=== PATIENT | female | born 1985 | race Caucasian/White ===

== ENCOUNTER 2017-06-09 05:32 | Inpatient (IN) ==
--- OUTSIDE RECORDS SUMMARY | 2017-06-09 05:42 | External Medical Summary | Continuity of Care Document ---
:1985 Author Organization [facility] Care Team Providers Name Role Phone [employer] Unavailable Unavailable Problems Problem Status Onset Classification Date Comments Source Date Reported Patient Active Problem 01/22/2017 Children[facility]apo currently 3 s;s [facility] (finding) and Clinics Resolved Problem 03/01/2013 Children&apo s;s [facility] and [facility] Medications Medication Details Route Status Patient Ordering Order Source Instructions Provider Date Refill(s) 0 Active [facility]a Multivitamins pos;s with [facility] Acid [facility] and Clinics Azithromycin 3 500 mg=1 tablet, Active Ravinder [facility] Day Dose Pack PO, qDay, # 3 pos;s 500 mg oral tablet, Refill(s) [facility], [facility]: [facility] and #[id number] Clinics ferrous sulfate Refill(s) 0 Active Children&a 325 mg (65 mg pos;s elemental iron) [facility] oral delayed Hospit[facility] release tablet and Clinics Ortho Micronor 0.35 mg=1 tablet, Active Amelia Children&a 0.35 mg oral PO, qDay, start pos;s tablet first tablet on Thursday07/17/2013. [facility] Take pill at the and same time every Clinics day., x 90 day(s), # 90 tablet, Refill(s) 3
</b r>start first tablet on Thursday07/17/2013. Take pill at the same time every day. lanolin topical Topical, Active Satija Children&a ointment Other-see pos;s comments, PRN [facility] Other (see Hospitals comment), and Refill(s) 0 Clinics Colace 100 mg 100 mg=1 capsule, Active Satija Children[facility]a oral capsule PO, BID, PRN pos;s Constipation, [facility] with plenty of Hospitals water, # 30 and capsule, Clinics Refill(s) 1
</b r>with plenty of water oxycodone =1 tablet, PO, Active Satija Children&a 5mg-acetaminoph q4hr, PRN PRN pos;s en 325 mg oral Pain, Severe, not [facility] tablet to exceed 12 Hospitals tablets/day not and to exceed 4000 mg Clinics acetaminophen per day, # 30 tablet, Refill(s) 0, Print Requisition
</br>no t to exceed 12 tablets/day not to exceed 4000 mg acetaminophen per day simethicone 80 80 mg=1 tablet, Active Satija Children[facility]a mg oral tablet, PO, 4 times a day pos;s chewable (after meals and [facility] bedtime), PRN Hospitals Gas, Refill(s) 0 and Clinics ibuprofen 800 800 mg=1 tablet, Active Satija Children&a mg oral tablet PO, q8hr, PRN pos;s Pain, Mild, [facility] Moderate and Hospitals Severe, with food and or milk, # 30 Clinics tablet, Refill(s) 1
</b r>with food or milk Tucks 1 application, Active Satija [facility] Topical, 4 times pos;s a day, PRN Other [facility] (see comment), Hospitals Refill(s) 0 and Clinics ibuprofen 07/06/13 12:02:00 Inactive Sejal Children&a MANAGER MEDIA, pos;s [id number], [facility] Routine, 800 mg=1 Hospitals tablet, PO, q8hr, and PRN Pain, Mild, Clinics Moderate and SevereADMINISTER WITH FOOD OR MILK MED ID: [id number] Results Order Name Results Value Reference Date Interpretation Comments Source Range 01/21 [facility] pos;s Letter [facility] Antepartum Exam 01/21 Provider Name: Marco Lerma MD [facility] Electronically Signed On: 01/21/17 04:10 PM pos; s Clinic Note Clinic Note [facility] Nurse Communication and [facility] Nurse Communication: 31 year old at 19w1d gestation seen at the [facility] for /CL and f/u echo. is complicated by a previous child with a HLHS. Pt is without complaints today. Pt denies contractions, bleeding, or LOF. labor precautions, and delivery management discussed. Pt verbalized understanding. Plan: Continue routine PNC with Dr Johnson Recommend a 3rd trimester ultrasound for growth with Dr Johnson or the [facility] Repeat C/S with Dr Johnson f/u as clinically indicated by primary provider Vitals/Ht/Wt Comfort History Comfort Assessment: No pain Obstetrical History : 3 Para Fullterm: 0 Para : 0 Abortions: 1 Livin #1 Baby's Name: Baby 1 Delivery/Outcome Date: 06/08/2012 00:00 Outcome: Delivery history: section OB Exam FHR Monitoring Method: Ultrasound Contractions: No Membrane Status: Intact Social History Category Details Last Reviewed Tobacco Never used 02/28/2013 Smoking Exposure No 02/28/2013 Provider Name: Marco Lerma MD</br> Electronically Signed On: 01/21/17 04:10 PM</br> 01/21 [facility] /2017 pos;s Ultrasound Ultrasound [facility] OBSTETRICS REPORT and Clinics (Signed Final 01/21/2017 04:08 pm) Patient Info ID #: [id number] : [birth year] (31 yrs)(F ) Name: Sheridan Snow Visit Date: 01/21/2017 09:30 am Performed By Performed By: Heike Samuels Referred By: Sheridan Johnson MD [facility] Attending: Marco Lerma, Location: [facility] Service(s) Provided US Repeat 80043 US Transvaginal Uterus 23653 Indications Previous child with HLHS Evaluation Num Of Fetuses: 1 Preg. Location: Intrauterine Heart Rate: 148 bpm Cardiac Activity: Observed Presentation: Breech Placenta: Posterior P. Cord Observed Insertion: Amniotic Fluid SABRINA FV: Normal Larg Pckt: 5.8 cm Biometry BPD: 44.7 mm G. Age: 19w 4d 43 % CI: 77.3 70 - 86 OFD: 57.8 mm FL/HC: 18.3 16.1 - 18.3 HC: 164 mm G. Age: 19w 1d 42 % HC/AC: 1.05 1.09 - 1.39 AC: 156.4 mm G. Age: 20w 6d 96 % FL/BPD: 67.1 FL: 30 mm G. Age: 19w 2d 44 % FL/AC: 19.2 20 - 24 HUM: 28.7 mm G. Age: 19w 2d 55 % CER: 19.9 mm G. Age: 19w 0d 46 % NFT: 2.87 mm NB: 6.2 mm LEFT HUM: 28.4 mm G. Age: 19w 1d 51 % FL: 29.5 mm G. Age: 19w 1d 38 % ULN: 27.1 mm G. Age: 20w 0d 59 % TIB: 27 mm G. Age: 19w 5d 69 % RAD: 24.1 mm G. Age: 19w 0d 47 % FIB: 26.8 mm G. Age: 19w 3d 69 % RIGHT HUM: 29 mm G. Age: 19w 3d 58 % FL: 31.7 mm G. Age: 19w 6d 67 % ULN: 26 mm G. Age: 19w 3d 47 % TIB: 26.6 mm G. Age: 19w 4d 64 % RAD: 25.3 mm G. Age: 19w 3d 59 % FIB: 27 mm G. Age: 19w 4d 71 % Est. FW: 325 gm 0 lb 11 oz 58 % Gestational Age LMP: w 1d Date: 09/09/16 MARIO: U/S Today: 5d MARIO: Best: 1d Det. By: LMP (09/09/16) MARIO: Targeted Anatomy Central Nervous System Calvarium: Normal appearance Cerebellum: Normal appearance Intracranial: Normal appearance Choroid Plexus: Normal appearance Lat. Ventricles: 6.5 mm Cisterna Magna: 3.1 mm Spine Cervical: Normal appearance Lumbar: Normal appearance Thoracic: Normal appearance Sacral: Normal appearance Head/Neck Face: Normal appearance Neck: Visualized Lips: Normal appearance Profile: Normal appearance Thorax Thoracic Normal appearance Aortic Arch: Visualized Contour: Lungs: Normal appearance Ductal Arch: Visualized Four Chamber: Visualized Cardiac Normal Rhythm: Cardiac Motion: Visualized Cardiac Clifton: Normal appearance R Outflow Tract: Visualized Diaphragm: Visualized L Outflow Tract: Visualized Abdomen Ventral Wall: Visualized Rt Kidney: Visualized Stomach: Visualized Bladder: Visualized Liver: Visualized Bowel: Visualized Lt Kidney: Visualized Extremities Lt Humerus: Visualized Lt Femur: Visualized Rt Humerus: Visualized Rt Femur: Visualized Lt Forearm: Visualized Lt Lower Leg: Visualized Rt Forearm: Visualized Rt Lower Leg: Visualized Lt Hand: Visualized Lt Foot: Visualized Rt Hand: Visualized Rt Foot: Visualized Other Umbilical Cord: 3-vessel Cord Insertion: Normal appearance Genitalia: Male Doppler - Vessels Ductus Venosus Normal Comment: Ductus venosus waveform is normal (positive a-wave). Doppler - Uterine Artery Right S/D Ratio: 2.62 RI: 0.62 PI: 1.15 Left S/D Ratio: 4.11 RI: 0.76 PI: 1.69 Notching: No notching seen bilaterally. Cervix Uterus Adnexa Cervical Length: 5.56 cm Cervix: Within Normal Limits Adnexa: Observed Impression Intrauterine gestation at 19 weeks 1 day. Breech presentation. No abnormalities seen. Interval growth is appropriate. Amniotic fluid volume is normal. Normal Doppler studies. Normal transvaginal cervical length suggesting low risk for idiopathic . Recommendations Follow up as clinically indicated. Marco Lerma MD Electronically Signed Final Report 01/21/2017 04:08 pm Impression Intrauterine gestation at 19 weeks 1 day. Breech presentation. No abnormalities seen. Interval growth is appropriate. Amniotic fluid volume is normal. Normal Doppler studies. Normal transvaginal cervical length suggesting low risk for idiopathic . Best. Gest. Age 19w 1d Amniotic F.V. Normal Est. Wt. (in gm) 325 Antepartum Exam 12/29 Provider Name: Ethan Castellon MD Children&a [facility] /2016 Electronically Signed On: 12/29/16 01:45 PM pos; s Clinic Note Clinic Note [facility] Nurse Communication and Clinics Nurse Communication: 31 year old at 16w0d gestation seen at the [facility] for f/u US. is complicated by an increased NT and previous child with a HLHS. Pt is without complaints today. Pt denies contractions, ble eding, or LOF. labor precautions and managment discussed. Pt verbalized understanding. Plan: f/u echo, level II and cervical length in 4 weeks with the Counts include 234 beds at the [facility] Continue routine PNC with Dr Johnson [facility] Next Appointment Recommendation: 4 weeks Vitals/Ht/Wt Pre- Weight: 63.6 kg Comfort History Comfort Assessment: No pain Obstetrical History : 3 Para Fullterm: 0 Para : 0 Abortions: 1 Livin #1 Baby's Name: Baby 1 Delivery/Outcome Date: 06/08/2012 00:00 Outcome: Delivery history: section OB Exam Heart Tones: 148 bpm FHR Monitoring Method: Ultrasound Contractions: No Membrane Status: Intact Social History Category Details Last Reviewed Tobacco Never used 02/28/2013 Smoking Exposure No 02/28/2013 Provider Name: Ethan Castellon MD</br> Electronically Signed On: 01:45 PM</br> 12/29 [facility] pos;s Letter [facility] 12/29 [facility] pos;s Ultrasound [facility] 12/01 [facility] pos;s Ultrasound [facility] 12/01 [facility] pos;s Letter [facility] Antepartum Exam 12/01 Provider Name: Marco Lerma MD [facility] Electronically Signed On: 12/01/16 04:40 PM pos; s Clinic Note Clinic Note [facility] Nurse Communication and [facility] Nurse Communication: 31 year old at 11w6d gestation seen at the [facility] for 1st trimester screen. is complicated by a prior history of a baby with HLHS. Pt is without complaints today. Pt denies contractions, bleeding, or LOF. management discussed. Pt verbalized understanding. Pt has a negative NIPS. Plan: Continue routine PNC with Dr Johnson early echo and f/u US in 4 weeks with the [facility] Detailed anatomy scan and cervical length at 20 wks with the [facility] Next Appointment Recommendation: 4 weeks Vitals/Ht/Wt Comfort History Comfort Assessment: No pain Obstetrical History : 3 Para Fullterm: 0 Para : 0 Abortions: 1 Livin #1 Baby's Name: Baby 1 Delivery/Outcome Date: 06/08/2012 00:00 Outcome: Delivery history: section OB Exam Heart Tones: 164 bpm FHR Monitoring Method: Ultrasound Contractions: No Membrane Status: Intact Social History Category Details Last Reviewed Tobacco Never used 02/28/2013 Smoking Exposure No 02/28/2013 Provider Name: Marco Lerma MD</br> Electronically Signed On: 12/01/16 04:40 PM</br> CBC WBC 6.72 4.50 - 08/23 NA Children&a x10(3) mcL 11.00 /2013 pos;s [facility] and Clinics Vital Signs Vital Sign Value Date Comments Source Temperature Celsius 36.7 Prerna 08/23/2013 Children's [facility] Clinics Diastolic Blood 73 mm[Hg] 08/23/2013 Children's Pressure Cuff [facility] Monitored and Clinics Temperature Route Oral 08/23/2013 Children's
</b [facility] Hospitals r>(08/23/2013 and Clinics 13:32:00) <sup> </sup> Heart Rate 63 bpm 08/23/2013 Children's [facility] Clinics Respiratory Rate 18 BR/min 08/23/2013 Children's [facility] Clinics Systolic Blood 132 mm[Hg] 08/23/2013 Children's Pressure Cuff [facility] Monitored and Clinics SpO2 97 % 08/23/2013 [facility]'s [facility] and [facility] Mean Arterial 95 mm[Hg] 07/10/2013 Children's Pressure Cuff [facility] Monitored and Clinics Systolic Blood 133 mm[Hg] 07/10/2013 Children's Pressure Cuff [facility] Monitored and Clinics Diastolic Blood 75 mm[Hg] 07/10/2013 Children's Pressure Cuff [facility] Monitored and Clinics NBP Activity Calm 07/09/2013 Children's
</b [facility] r>(07/09/2013 and Clinics 17:00:00) <sup> </sup> SpO2 99 % 07/09/2013 Children's [facility] Clinics Heart Rate 70 bpm 07/09/2013 Children's [facility] Respiratory Rate 17 BR/min 07/09/2013 Children's [facility] Clin[facility] NBP Cuff Sizes Adult 07/09/2013 Children's
</b [facility] r>(07/09/2013 and Clinics 17:00:00) <sup> </sup> NBP Position Lying 07/09/2013 Children's
</b [facility] r>(07/09/2013 and Clinics 17:00:00) <sup> </sup> NBP Extremity Arm, right 07/09/2013 Children's
</b [facility] r>(07/09/2013 and Clinics 17:00:00) <sup> </sup> Systolic Blood 133 mm[Hg] 07/09/2013 Children's Pressure Cuff [facility] Monitored and Clinics Diastolic Blood 75 mm[Hg] 07/09/2013 Children's Pressure Cuff [facility] Monitored and Clinics Temperature Celsius 37.0 Prerna 07/09/2013 Children's [facility] Clin[facility] Temperature Route Core/Temporal 07/09/2013 Children's
</b [facility] r>(07/09/2013 and Clinics 16:00:00) <sup> </sup> Total Pain 0 07/09/2013 Children's Calculation [facility] Hospitals and Clinics Temperature Celsius 37.5 Prerna 07/09/2013 Children's [facility] Clinics Temperature Route Core/Temporal 07/09/2013 Children's
</b [facility] r>(07/09/2013 and Clinics 13:15:00) <sup> </sup> NBP Cuff Sizes Adult 07/09/2013 Children's
</b [facility] r>(07/09/2013 and Clinics 13:15:00) <sup> </sup> Respiratory Rate 17 BR/min 07/09/2013 Children's [facility] SpO2 99 % 07/09/2013 Children's [facility] Diastolic Blood 73 mm[Hg] 07/09/2013 Children's Pressure Cuff [facility] Monitored and Clinics Systolic Blood 124 mm[Hg] 07/09/2013 Children's Pressure Cuff [facility] Monitored and Clinics Mean Arterial 91 mm[Hg] 07/09/2013 Children's Pressure Cuff [facility] Monitored and Clinics NBP Extremity Arm, left 07/09/2013 Children's
</b [facility] r>(07/09/2013 and Clinics 13:15:00) <sup> </sup> NBP Position Sitting 07/09/2013 Children's
</b [facility] r>(07/09/2013 and Clinics 13:15:00) <sup> </sup> Finger Digit 2 (Pointer) 07/09/2013 Children's
</b [facility] r>(07/09/2013 and Clinics 13:15:00) <sup> </sup> Heart Rate 78 bpm 07/09/2013 Children's [facility] and [facility] Oximetry Site Finger, right 07/09/2013 Children's hand [facility]
</b and Clinics r>(07/09/2013 13:15:00) <sup> </sup> NBP Activity Calm 07/09/2013 Children's
</b [facility] r>(07/09/2013 and Clinics 13:15:00) <sup> </sup> Total Pain 0 07/09/2013 Children's Calculation [facility] Clinics Total Pain 1 07/09/2013 Children's Calculation [facility] Mean Arterial 101 mm[Hg] 07/08/2013 Children's Pressure Cuff [facility] Monitored and Clinics Heart Rate Monitored 92 bpm 07/08/2013 Children's [facility] and [facility] SpO2 100 % 07/08/2013 Children's [facility] Temperature Celsius 36.8 Prerna 07/08/2013 Children's [facility] NBP Cuff Sizes Adult 07/08/2013 Children's
</b [facility] r>(07/08/2013 and Clinics 15:10:00) <sup> </sup> Temperature Route Core/Temporal 07/08/2013 Children's
</b [facility] r>(07/08/2013 and Clinics 15:10:00) <sup> </sup> Heart Rate Monitored 90 bpm 07/08/2013 Children's [facility] and [facility] Respiratory Rate 20 BR/min 07/08/2013 Children's Monitored [facility] Finger Digit 2 (Pointer) 07/08/2013 Children's
</b [facility] r>(07/08/2013 and Clinics 08:35:00) <sup> </sup> Oximetry Site Finger, left 07/08/2013 Children's hand [facility]
</b and Clinics r>(07/08/2013 08:35:00) <sup> </sup> NBP Extremity Arm, left 07/08/2013 Children's
</b [facility] r>(07/08/2013 and Clinics 08:35:00) <sup> </sup> NBP Position Sitting 07/08/2013 Children's
</b [facility] r>(07/08/2013 and Clinics 08:35:00) <sup> </sup> NBP Activity Active/playing 07/08/2013 Children's
</b [facility] r>(07/08/2013 and Clinics 08:35:00) <sup> </sup> Respiratory Rate 18 BR/min 07/08/2013 Children's [facility] and [facility] Heart Rate Monitored 84 bpm 07/08/2013 Children's [facility] Finger Digit 2 (Pointer) 07/08/2013 Children's
</b [facility] r>(07/07/2013 and Clinics 21:45:00) <sup> </sup> Oximetry Site Finger, right 07/08/2013 Children's hand [facility]
</b and Clinics r>(07/07/2013 21:45:00) <sup> </sup> Systolic Blood 113 mm[Hg] 07/06/2013 Children's Pressure [facility] and Clinics Mean Arterial 72 mm[Hg] 07/06/2013 Children's Pressure [facility] Clinics Diastolic Blood 52 mm[Hg] 07/06/2013 Children's Pressure [facility] Hospitals and Clinics Heart Rate 80 bpm 07/06/2013 Children's [facility] Hospitals and Clinics Diastolic Blood 75 mm[Hg] 06/29/2013 Children's Pressure Cuff [facility] Monitored and Clinics Heart Rate 101 bpm 06/29/2013 Children's [facility] and Clinics Systolic Blood 123 mm[Hg] 06/29/2013 Children's Pressure Cuff [facility] Monitored [facility] Clinics Heart Rate 94 bpm 06/17/2013 Children's [facility] Clinics Respiratory Rate 16 BR/min 06/17/2013 Children's [facility] Clinics Diastolic Blood 75 mm[Hg] 06/17/2013 Children's Pressure Cuff [facility] Monitored and Clinics Systolic Blood 127 mm[Hg] 06/17/2013 Children's Pressure Cuff [facility] Monitored and Clinics Heart Rate 88 bpm 04/01/2013 Children's [facility] Clinics Diastolic Blood 66 mm[Hg] 04/01/2013 Children's Pressure Cuff [facility] Monitored and Clinics Systolic Blood 130 mm[Hg] 04/01/2013 Children's Pressure Cuff [facility] Monitored and Clinics Encounters Location Location Encounter Encounter Reason Attending ADM DC Status Source Details Type Number For Visit Provider Date Date [facility] CLI [id number] Genetics/ Ethan 02/28 02/28 Active Children&a SW Ravinder pos;s [facility] CLI [id number] US, HLHS, Debo 04/01 04/01 Active Children&a , Fuchs pos;s NIPT [facility] and [facility] CLI [id number] CV Marco 05/13 05/13 Active Children&a Surgery Lerma pos;s Consult: [facility] ien and Clinics [facility] CLI [id number] Unknown 05/13 Active Children&a pos;s [facility] and [facility] CLI [id number] f/u US, Debo 06/17 06/17 Active Children&a BPP Fuchs pos;s [facility] and [facility] CLI [id number] BPP; f/u Marco 06/29 06/29 Active Children&a US; Lerma pos;s ; [facility] [place] [id number] delivery Sharonda 07/05 07/09 Active Children&a Satija pos;s [facility] and [facility] CLI [id number] BP and Marco 07/13 07/13 Active Children&a incision Lerma pos;s check [facility] and [facility] CLI [id number] 6 week PP Ethan 08/23 08/23 Active Children&a Ravinder pos;s [facility] and [facility] CLI [id number] Marco 12/01 12/01 Active Children&a Lerma pos;s [facility] [id number] Ethan 12/29 12/29 Active Children&a Ravinder /2016 pos;s [facility] Family History Value Date Source Advance Directives Order Name Results Value Date Source
--- OUTSIDE RECORDS SUMMARY | 2017-06-09 05:43 | External Medical Summary | Continuity of Care Document ---
:1985 Author Organization [facility] Address [address] [place], [place] [id number] Phone Care Team Providers Name Role Phone Haleigh Charles APRN Unavailable Unavailable Allergies, Adverse Reactions, Alerts Substance Reaction Severity Status No Known Drug Allergies Unknown Active Medications Medication Instructions Dosage Effective Dates Status Comments (start - stop) amoxicillin 500 mg take 1 tablet by 500 MG - Active tablet oral route every 8 hours Rhophylac 1,500 - Active unit (300 mcg)/2 mL injection syringe Tylenol 8 Hour 650 take 2 tablet by - Active mg tablet,extended oral route every 8 release hours as needed Plus 27 take 1 tablet by Not Available - Active mg-1 mg tablet oral route every day Zyrtec 10 mg as needed - Active capsule Problems Condition Effective Dates (start - stop) Clinical Status 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) w/o abn findings Supervision of other high risk - pregnancies, third trimester 31 weeks gestation of - Previous Low Transverse - Encounter for suprvsn of normal - , second trimester 26 weeks gestation of - Encounter for suprvsn of normal - , third trimester 28 weeks gestation of - Supervision of other high risk - pregnancies, third trimester Oth related conditions, - third trimester 34 weeks gestation of - Acute upper respiratory infection, unspecified Acute bronchitis, unspecified Unspecified lump in breast Irregular Menses Encounter for test, result positive Supervision of other high risk - pregnancies, first trimester 13 weeks gestation of - Supervision of other high risk - pregnancies, first trimester Encntr screen for infections w sexl - mode of transmiss Encounter for screening for oth - infec/parastc diseases Encounter for suprvsn of normal - , first trimester Encounter for screening of - mother 10 weeks gestation of - Supervision of other high risk - pregnancies, second trimester 22 weeks gestation of - Supervision of other high risk - pregnancies, second trimester 18 weeks gestation of - Previous Low Transverse - Matern care for oth or susp poor fetl - grth, third tri, unsp 31 weeks gestation of - Fam hx of congen malform, deformations - and chromsoml abnlt Matern care for oth or susp poor fetl - grth, third tri, unsp 31 weeks gestation of - OCP Surveillance - Active Procedures Procedure Date OB Visit No Charge Results Test Name Date and Time Measure Units Reference Range Abnormal Flag Comments Unknown Advance Directives Directive Yes / No Effective Date File Name Unknown Encounters Encounter Practice Location Reason(s) Diagnoses Date Provider Care Team Description For Visit Members [facility] Supervision of Alex Referring In Womens other high risk 1-201 [place]. Provider: Health PA, pregnancies, 7 700 [place] [address] [facility] Medical K, [address], [facility] [place], related Dr, [facility] Dr RIBERA, conditions, third 120, [place] 120, [id number], [id number] weeks Honorio Olmedo, gestation of MOUNIKA, MOUNIKA, tel: [phone] , [place]. tel: tel: [phone] Lisa Olmedo Supervision of Nov-1 Johnson Referring In Womens other high risk 3-201 [place]. Provider: Sana MOTA, pregnancies, 7 700 [place] [address] third [id number] Medical K, 700 1522, weeks gestation [facility], of , [facility] [address] RIBERA, 120, Me[place] 120, [id number], Honorio Olmedo, MOUNIKA RIBERA, tel: [phone]. , [place]. tel: tel: [phone] Lisa Olmedo Previous Low Nov-1 Johnson Referring In Womens Ultrasound Transverse 3-201 [place]. Provider: Sana MOTA, C-SectionMatern 7 700 [place] [address] Box care for oth or Medical K, 700 1522, susp poor fetl [facility], gr, third tri, , [facility] Dr RIBERA, [id number] weeks 120, Meño 120, , gestation of Honorio Olmedo, pregnancyFam hx MOUNIKA RIBERA, tel: of congen [phone]. [facility], , [place]. tel: deformations and tel: [phone] [facility] [phone] Lisa Olmedo Matern care for Nov-0 Johnson Referring In Womens oth or susp poor 7-201 [place]. Provider: Sana MOTA, fetl grth, third 7 700 [place] PO [address] tri, [email or web address] weeks Medical , 700 1522, gestation of [facility] [place], , [facility] Dr RIBERA, 120, Meño 120, [id number], Honorio Olmedo, [place] MOUNIKA RIBERA, tel: [phone]. , [place]. tel: tel: [phone] Lisa Olmedo Encounter for Oct-2 Johnson Referring In Womens suprvsn of normal 3-201 [place]. Provider: Sana MOTA, , third 7 700 [place] PO Box [id number] weeks Medical K, 700 1522, gestation of [facility], , [facility] Dr RIBERA, 120, Meño 120, , Honorio Olmedo, MOUNIKA RIBERA, tel: [phone]. , [place]. tel: tel: [phone] Lisa Omledo Previous Low Oct-0 Johnson Referring In Womens Transverse 6-201 [place]. Provider: Sana MOTA, C-SectionEncounte 7 700 [place] PO Box r for suprvsn of [facility], 700 1522, normal , [facility] [place], [facility] , [facility] Dr RIBERA, [id number] weeks 120, Me[place] 120, , gestation of Honorio Olmedo, MOUNIKA, MOUNIKA, tel: [phone]. , [place]. tel: tel: [phone] Lisa Olmedo Supervision of Sep-0 Johnson Referring In Womens other high risk 5-201 [place]. Provider: Health NAKUL, pregnancies, 7 700 [place] PO Box second Medical , 700 1522, [id number] weeks [facility] [place], gestation of , [facility] Dr RIBERA, 120, Meño 120, , Honorio Olmedo, MOUNIKA MOUNIKA, tel: [phone]. , [place]. tel: tel: [phone] Lisa Olmedo Supervision of Aug-0 Johnson Referring In Womens other high risk 8-201 [place]. Provider: Health NAKUL, pregnancies, 7 700 [place] PO Box second Medical , 700 1522, [id number] weeks [facility] [place], gestation of , [facility] Dr RIBERA, 120, Meño 120, , Honorio Olmedo, MOUNIKA, MOUNIKA, tel: [phone]. , [place]. tel: tel: [phone] Lisa Olmedo Supervision of Dec- Johnson Referring In Womens other high risk 0-201 [place]. Provider: Health NAKUL, pregnancies, 7 700 [place] PO Box first [id number] Medical K, 700 1522, weeks gestation [facility] [place], of , [facility] Dr RIBERA, 120, Meño 120, , Honorio Olmedo, MOUNIKA, MOUNIKA, tel: [phone]. , [place]. tel: tel: [phone] Lisa Olmedo Supervision of Johnson Referring In Womens other high risk 5-201 [place]. Provider: Health NAKUL, pregnancies, 7 700 [place] PO Box first Medical , 700 1522, trimesterEncntr [facility] [place], screen for Dr, [facility] Dr RIBERA, infections w sexl 120, Me[place] 120, , mode of Honorio [place]medo, transmissEncounte [place], [place], tel: r for screening [phone]. for oth , [place]. tel: infec/parastc tel: [phone] diseasesEncounter [phone] for suprvsn of normal , first trimesterEncounte r for screening of [id number] weeks gestation of [facility] Irregular Butler Referring In Womens MensesEncounter Renée. Provider: Health NAKUL, for 7 700 [place] PO Box test, result Medical , 700 1522, positive Center [facility], , [facility] Dr RIBERA, 120, Meño 120, , Honorio Olmedo, MOUNIKA, MOUNIKA, tel:[phone]. , [place]. tel: tel: [phone] Lisa Olmedo Acute upper October- Soham Referring In Womens respiratory - Izzy. Provider: Health NAKUL, infection, 7 700 [place] PO Box unspecifiedAcute Medical K, 700 1522, bronchitis, [place] [place]send, unspecified , [facility] Dr RIBERA, 120, Meño 120, , Honorio Olmedo, [place], tel: [phone]. , [place]. 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 Provider: Health NAKUL, (routine) w/o abn 7 700 [place] PO Box [facility] Medical , 700 1522, [place] [address], [facility] [place], 120, [place] 120, [id number], Honorio [place], [place], [place], tel:+ [phone]. , [place]. tel: tel: [phone] Lisa Olmedo Unspecified lump Nov-2 Miguelangel Referring In Womens in breast 1-201 Mar. Provider: Sana MOTA, 6 700 [place] Johnson [facility], 700 1522, [place] [address], [facility] [address] RIBERA, 120, Me[place] 120, [id number], Honorio [place], [place], tel:+ [phone]. , [place]. tel: tel: [phone] Lisa Olmedo Yogesh-2 Johnson Referring In Womens 7-201 [place]. Provider: Sana MOTA, 5 700 [place] Johnson [facility], 700 1522, [place] [address], [facility] [address] RIBERA, 120, Meño 120, [id number], Honorio [place], [place], tel:[phone]. , [place]. tel: tel: [phone] Lisa Olmedo Yogesh-0 Means In Womens 8-201 Mar. Sana MOTA, 3 700 [facility] 15[address], [address], [place], 120, [id number], [place], [place], tel:[phone] , [place]. tel: [phone] Lisa Olmedo Yogesh-0 Johnson In Womens 6-201 [place]. Sana MOTA, 3 700 [facility] 1522, [address], [place], 120, [id number], [place], [place], tel:[phone] , [place]. tel: [phone] Family History Family Member Diagnosis Age At Onset No family history of Thrombosis Mother Gestational Diabetes Maternal Grandfather Diabetes mellitus Son Cardiovascular Disease Mother Gynecological Problem Immunizations Vaccine Date Status Comments Tdap completed Source: New Immunization Record Rhophylac completed Source: New Immunization Record Influenza, injectable, completed Source: New Immunization Record quadrivalent, preservative free, 3 yrs or older Influenza, injectable, completed Source: New Immunization Record quadrivalent, preservative free, 3 yrs or older Payers Payer name Insurance type Covered republican ID Authorization(s) [facility] BL [id number] [place] CI [id number] BC [place] BL [id number] [facility] BL [id number] [facility] BL [id number] [facility] [id number] Social History Type Description Quantity Date Captured Alcohol Use Details No Caffeine Use Details Unknown Tobacco Use Status Unknown Smoking Status Never smoker Vital Signs Date / Height Weight BMI Pulse Blood Temperature Respiratory Body Head BMI Time: Rate Pressure Rate Surface Circumference percentile Area 185.70 30.9 133/79 -2017 lbs 0 mm[Hg] 3:49 kg/m PM eter (2) 30 6 3:42 kg/m PM eter (2) Chief Complaint And Reason For Visit Unknown Chief Complaint And Reason For Visit Reason For Referral Reason For Referral Unknown Plan Of Care Date Type Action Status Appointment Sheridan Blount BOOKED Appointment Sheridan Blount [facility] R C/S BOOKED Future Order: Radiology Order Diagnostic Mammogram Right Breast Ordered ([id number]) Future Order: Radiology Order Breast Ultrasound Right Breast Ordered ([id number]) Future Order: Radiology Order Ultrasound OB Follow-up ([id number]) Ordered Date Type Problem Goal Intervention Status Start Date Unknown. History Of Present Illness Encounter Date Complaint History Of Present Illness This patient has no known history of present illness Functional Status Encounter Date Functional Assessment Cognitive Assessment Unknown Medications Administered Medication Instructions Dosage Effective Dates (start - stop) Status Comments Drug Treatment Unknown Instructions Date Instruction Additional Information gestational glucose lab screening HIV and other routine tests risk factors identified by history hospital registration genetic testing Zika virus assessment & precautions environmental / work hazards travel use of any medications (including supplements, vitamins, herbs, OTC drugs) domestic violence seat belt use childbirth classes / hospital facilities anticipated course of care nutrition and weight gain counseling, special diet toxoplasmosis precautions (cats / raw meat) sexual activity exercise indications for ultrasound influenza vaccine
--- OUTSIDE RECORDS SUMMARY | 2017-06-09 05:43 | External Medical Summary | Continuity of Care Document ---
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 Encounter for suprvsn of normal - , third trimester 28 weeks gestation of - Previous Low Transverse - Encounter for suprvsn of normal - , second trimester 26 weeks gestation of - Acute upper respiratory [...] second trimester 18 weeks gestation of - Matern care for oth or susp poor fetl - grth, third tri, unsp 31 weeks gestation of - OCP Surveillance - Active Procedures Procedure Date Injection Administration Rhophylac 100 Units OB Visit No Charge Results Test Name Date and Time Measure Units Reference Range Abnormal Flag Comments Unknown Advance Directives Directive Yes / No Effective Date File Name Unknown Encounters Encounter Practice Location Reason(s) Diagnoses Date Provider Care Team Description For Visit Members Lisa Olmedo Matern care for oth Nov-0 Johnson Referring In Womens or susp poor fetl 7-201 [place]. Provider: Sana MOTA, grth, third tri, 7 700 [place] [address] [id number] weeks Medical , 700 1522, gestation of [facility], , [facility] [address] RIBERA, 120, Me[place] 120, [id number], Honorio [place], [place], [place], tel:[phone]. , [place]. tel: tel: [phone] Lisa Olmedo Encounter for Oct-2 Johnson Referring In Womens suprvsn of normal 3-201 [place]. Provider: Sana MOTA, , third 7 700 [place] PO Box [id number] weeks Medical , 700 1522, gestation of [facility], , [facility] Dr RIBERA, 120, Me[place] 120, [id number], Honorio Olmedo, [facility], [place], tel: [phone]. , . tel: tel: [phone] Olmedo Previous Low Oct-0 Johnson Referring In Womens Transverse 6-201 [place]. Provider: Health NAKUL, C-SectionEncounter 7 700 [place] PO Box for suprvsn of [facility], 700 1522, normal , [facility], second [email or web address] , [facility] Dr RIBERA, weeks gestation of 120, [place] 120, [id number], Honorio Olmedo, MOUNIKA, MOUNIKA, tel:[phone]. , [place]. tel: tel: [phone] Lisa Olmedo Supervision of Sep-0 Johnson Referring In Womens other high risk 5-201 [place]. Provider: Health PA, pregnancies, second 7 700 [place] PO Box [id number] weeks [facility], 700 1522, gestation of [facility], , [facility] Dr RIBERA, 120, Me[place] 120, , Honorio Olmedo, MOUNIKA, MOUNIKA, tel:[phone]. , [place]. tel: tel: [phone] Lisa Olmedo Supervision of Aug-0 Johnson Referring In Womens other high risk 8-201 [place]. Provider: Health NAKUL, pregnancies, second 7 700 [place] PO Box [id number] weeks Medical , 700 1522, gestation of [facility], , [facility] Dr RIBERA, 120, [place] 120, [id number], Honorio Olmedo, MOUNIKA, MOUNIKA, tel:[phone]. , [place]. tel: tel: [phone] Lisa Olmdeo Supervision of Dec- Johnson Referring In Womens other high risk 0-201 [place]. Provider: Health NAKUL, pregnancies, first 7 700 [place] PO Box [id number] weeks [facility], 700 1522, gestation of [facility], , [facility] [address] RIBERA, 120, [place] 120, [id number], Honorio Olmedo, MOUNIKA, MOUNIKA, tel:[phone]. , [place]. tel: tel: [phone] Olmedo Supervision of Johnson Referring In Womens other high risk - [place]. Provider: Health PA, pregnancies, first [place] Johnson PO Box trimesterEncntr Medical K, 700 152, screen for [place] Lilian Townsend, infections w sexl , [facility] Dr RIBERA, mode of 120, [place] 120, [id number], transmissEncounter Honorio [place], for screening for MOUNIKA RIBERA, tel: ot infec/parastc [phone]. [facility]: for suprvsn of tel: [phone] normal , [id number] first trimesterEncount for screening of ujalir21 weeks gestation of [facility] Irregular Butler Referring In Women MensesEncsaint agnes medical centerer for Renée. Provider: Health NAKUL, test, [place] PO Box result positive Medical , 700 1522, [place] [address], [facility] Dr RIBERA, 120, [place] 120, , Honorio Olmedo, MOUNIKA RIBERA, tel: [phone]. , [place]. tel: tel: [phone] Lisa Olmedo Acute upper October- Soham Referring In Womens respiratory - Izzy. Provider: Health NAKUL, infection, [place] PO Box unspecifiedAcute Medical K, 700 1522, bronchitis, [place] Lilian Townsend, unspecified , [facility] Dr RIBERA, 120, [place] 120, , Honorio Olmedo, MOUNIKA RIBERA, tel: [phone]. , [place]. 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 Provider: Health NAKUL, w/o abn findings Sher[place] PO Box Medical K, 700 1522, [place] [address], [facility] Dr RIBERA, 120, [place] 120, , Honorio [place], [place], tel: [phone]. , [place]. tel: tel: [phone] Lisa Olmedo Unspecified lump in 2 Means Referring In Womens breast 1-201 Mar. Provider: Sana MOTA, 6 700 [place] Mckeonb PO Box Medical , 700 1522, [place] [address], [facility] [place], 120, [place] 120, [id number], Honorio [place], [place], tel: [phone]. , [place]. tel: tel: [phone] Lisa Olmedo Jun-2 Johnson Referring In Womens 7-201 [place]. Provider: Sana MOTA, 5 700 [place] Mckeonb PO Box Medical , 700 1522, [place] [address], [facility] [place], 120, [place] 120, [id number], Honorio Olmedo, [facility], [place], tel: [phone]. , [place]. tel: tel: [phone] Lisa Olmedo Yogesh-0 Means In Womens 8-201 Mar. Health NAKUL, 3 700 [facility] 1522, [address], [facility] [place], 120, [id number], [facility] [place], tel:[phone] , [place]. tel: [phone] Lisa Olmedo Yogesh-0 Johnson In Womens 6-201 [place]. Health NAKUL, 3 700 [facility] 1522, [place] Dr Kristian, [facility] [place], 120, [id number], [facility] [place], tel: [phone] , [place]. tel: [phone] Family History Family Member Diagnosis Age At [...] older Payers Payer name Insurance type Covered alliance party ID Authorization(s) [employer] [place] BL [id number] Eve[place] CI [id number] [employer] [place] [id number] [place] [place] [id number] [place] [id number] [place] [id number] Social History Type Description Quantity Date Captured Alcohol Use Details No Caffeine Use Details Unknown Tobacco Use Status Unknown Smoking Status Never smoker Vital Signs Date / Height Weight BMI Pulse Blood Temperature Respiratory Body Head BMI Time: Rate Pressure Rate Surface Circumference percentile Area 181.90 30.2 123/ lbs 7 mm[Hg] 2:09 kg/m PM eter (2) Chief Complaint And Reason For Visit Unknown Chief Complaint And Reason For Visit Reason For Referral Reason For Referral Unknown Plan Of Care Date Type Action Status Appointment Sheridan Blount BOOKED Appointment Sheridan Blount BOOKED Appointment Sheridan Blount [facility] R C/S BOOKED Future Order: Radiology Order Diagnostic Mammogram Right Breast Ordered ([id number]) Future Order: Radiology Order Breast Ultrasound Right Breast Ordered ([id number]) Date Type Problem Goal Intervention Status Start [...]
--- OUTSIDE RECORDS SUMMARY | 2017-06-09 05:43 | External Medical Summary | CCD ---
:1985 Author Organization [facility] Care Team Providers Name Role Phone AlexSheridan Valente Referring Provider [phone] No, PCP Primary Care Provider Unavailable Ethan Castellon Consulting Provider [phone] Allergies, Adverse Reactions, Alerts Substance Reaction Status No Known Adverse Reactions1 Active 1pineapple and broccoli cause stomach cramps Problem List Condition Effective Dates Status 10/05/2012 Active < 06/08/2012 Resolved Medications Medication Instructions Start Date End Date Status Multivitamins with Folic Acid 0.8 Refill(s) 0 02/28/2013 Ordered mg oral tablet Procedures Procedures Date Related Diagnosis Doppler echocardiography color flow velocity 12/29/2016 00:00:00 mapping (List separately in addition to codes for echocardiography) Echocardiography, , cardiovascular system, real time with image documentation (2D), with or without M-mode recording; Office consultation for a new or established patient, which requires these 3 stahl components: A problem focused history; A problem focused examination; and Straightforward medical decision making. Counseling and/or coordination of care with other physician
--- OUTSIDE RECORDS SUMMARY | 2017-06-09 05:43 | External Medical Summary | Continuity of Care Document ---
:1985 Author Organization [facility] Address [address] [place], [place] [id number] Phone Care Team Providers Name Role Phone Haleigh Charles APRN Unavailable Unavailable Allergies, Adverse Reactions, Alerts Substance Reaction Severity Status No Known Drug Allergies Unknown Active Medications Medication Instructions Dosage Effective Dates Status Comments (start - stop) Tylenol 8 Hour 650 take 2 tablet by - Active mg tablet,extended oral route every 8 release hours as needed Plus 27 take 1 tablet by Not Available - Active mg-1 mg tablet oral route every day Problems Condition Effective Dates (start - stop) Clinical Status 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) - (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) w/o abn findings Supervision of other high risk - pregnancies, second trimester 22 weeks gestation of - Acute upper respiratory infection, unspecified Acute bronchitis, unspecified Unspecified lump in breast Irregular Menses Encounter for test, result positive Supervision of other high risk - pregnancies, first trimester 13 weeks gestation of - Supervision of other high risk - pregnancies, first trimester Encounter for suprvsn of normal - , first trimester Encounter for screening of - mother 10 weeks gestation of - Encntr screen for infections w sexl - mode of transmiss Encounter for screening for oth - infec/parastc diseases 18 weeks gestation of - Supervision of other high risk - pregnancies, second trimester OCP Surveillance - Active Procedures Procedure Date OB Visit No Charge Results Test Name Date and Time Measure Units Reference Range Abnormal Flag Comments Unknown Advance Directives Directive Yes / No Effective Date File Name Unknown Encounters Encounter Practice Location Reason(s) Diagnoses Date Provider Care Team Description For Visit Members Lisa Olmedo Supervision of Johnson Referring In Womens other high risk 5-201 [place]. Provider: Sana MOTA, pregnancies, second 7 700 [place] Johnson [address] [id number] weeks Medical , 700 1522, gestation of [facility], , [facility] Dr RIBERA, 120, Me[place] 120, [id number], Honorio Olmedo, MOUNIKA, MOUNIKA, tel: [phone]. , [place]. tel: tel: [phone] Lisa Olmedo 18 weeks gestation Johnson Referring In Womens of 8-201 Sher[place]. Provider: Sana MOTA, pregnancySupervisio 7 700 Sheridan Johnson PO Box n of [facility] Medical , 700 1522, risk pregnancies, [facility], second trimester , [facility] Dr RIBERA, 120, Me[place] 120, [id number], Honorio Olmedo, MOUNIKA RIBERA, tel: [phone]. , [place]. tel: tel: [phone] Lisa Olmedo Supervision of Johnson Referring In Womens other high risk 0-201 [place]. Provider: Sana MOTA, pregnancies, first 7 700 [place] Johnson [address] [id number] weeks Medical , 700 1522, gestation of [facility], , [facility] Dr RIBERA, 120, Meño 120, [id number], Honorio Olmedo, MOUNIKA RIBERA, tel: [phone]. , [place]. tel: tel: [phone] Lisa Olmedo Supervision of Johnson Referring In Womens other high risk 5-201 [place]. Provider: Sana MOTA, pregnancies, first 7 700 [place] [facility], for suprvsn of [place] Lilian Townsend, normal , , [facility] Dr RIBERA, first 120, Meño 120, , trimesterEncounter Honorio Olmedo, for MOUNIKA RIBERA, tel: screening of [phone]. [id number] weeks , [place]. tel: gestation of tel: [phone] pregnancyEncntr [id number] screen for infections w sexl mode of transmissEncounter for screening for oth infec/parastc diseases [facility]io Irregular October- Butler Referring In Womens MensesEncounter for Renée. Provider: Sana MOTA, test, Sher[place] Johnson PO Box result positive Medical , 700 1522, [place] Lilian Townsend, , [facility] Dr RIBERA, 120, Meño 120, , Honorio Olmedo, MOUNIKA RIBERA, tel: [phone]. , [place]. tel: tel: [phone] Associates [facility] Acute upper October- Soham Referring In Womens respiratory 8-201 Izzy. Provider: Sana MOTA, infection, Sheridan Johnson PO Box unspecifiedAcute Medical , 700 1522, bronchitis, [place] Lilian Townsend, unspecified , [facility] Dr RIBERA, 120, Meño 120, , Honorio Olmedo, M[place], tel: [phone]. , [place]. 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 Provider: Sana MOTA, w/o abn findings Sheridan Johnson PO Box Medical , 700 1522, [place] [address], [facility] Dr RIBERA, 120, Meño 120, , Honorio Olmedo, MOUNI[place] CT, tel: [phone]. , [place]. tel: tel: [phone] Lisa Olmedo Unspecified lump in Means Referring In Womens breast 1-201 Mar. Provider: Health PA, 6 700 Sheridan Mckeonb PO Box Medical K, 700 1522, [place] [address], [facility] Dr RIBERA, 120, Meño 120, [id number], Honorio [place], [place], tel: [phone]. , [place]. tel: tel: [phone] Lisa Olmedo Jun-2 Johnson Referring In Womens 7-201 Sheridan. Provider: Health PA, 5 700 [place] Johnson PO Box Medical K, 700 1522, [place] [address], [facility] [place], 120, Me[place] 120, [id number], Honorio [place], [place], tel:+ [phone]. , [place]. tel: tel: [phone] Lisa Olmedo Jun-0 Means In Womens 8-201 Mar. Health PA, 3 700 PO Box Medical [address], [place] Dr Kristian, [facility] [place], 120, [id number], [place], tel: [phone] , [place]. tel: [phone] Lisa Olmedo Jun-0 Johnson In Womens 6-201 Sheridan. Health PA, 3 700 PO Box Medical [address], [place] Dr Kristian, [facility] [place], 120, [id number], [place], tel: [phone] , [place]. tel: [phone] Family History Family Member Diagnosis Age At Onset No family history of Thrombosis Mother Gestational Diabetes Maternal Grandfather Diabetes mellitus Son Cardiovascular Disease Mother Gynecological Problem Immunizations Vaccine Date Status Comments Influenza, injectable, completed Source: New Immunization Record quadrivalent, preservative free, 3 yrs or older Payers Payer name Insurance type Covered green party ID Authorization(s) [facility] BL [id number] [facility] [id number] [facility] [id number] Social History Type Description Quantity Date Captured Alcohol Use Details No Caffeine Use Details Unknown Tobacco Use Status Unknown Smoking Status Never smoker Vital Signs Date / Height Weight BMI Pulse Blood Temperature Respiratory Body Head BMI Time: Rate Pressure Rate Surface Circumference percentile Area 170.40 35.6 -2017 lbs 5 4:05 kg/m PM eter (2) 170.40 35.6 120/64 -2017 lbs 5 mm[Hg] 4:16 kg/m PM eter (2) Chief Complaint And Reason For Visit Unknown Chief Complaint And Reason For Visit Reason For Referral Reason For Referral Unknown Plan Of Care Date Type Action Status Appointment Sheridan Blount BOOKED Future Order: Radiology Order Diagnostic Mammogram Right Breast Ordered ([id number]) Future Order: Radiology Order Breast Ultrasound Right Breast Ordered ([id number]) Date Type Problem Goal Intervention Status Start Date Unknown. History Of Present Illness Encounter Date Complaint History Of Present Illness This patient has no known history of present illness Functional Status Encounter Date Functional Assessment Cognitive Assessment Unknown Medications Administered Medication Instructions Dosage Effective Dates (start - stop) Status Comments Drug Treatment Unknown Instructions Date Instruction Additional Information HIV and other routine tests risk factors [...]
--- OUTSIDE RECORDS SUMMARY | 2017-06-09 05:43 | External Medical Summary | CCD ---
:1985 Author Organization [facility] Care Team Providers Name Role Phone Marco Lerma Consulting Provider [phone] Sheridan Johnson Referring Provider [phone] No, PCP Primary Care Provider Unavailable Allergies, Adverse Reactions, Alerts Substance Reaction Status No Known Adverse Reactions1 Active 1pineapple and broccoli cause stomach cramps Problem List Condition Effective Dates Status 10/05/2012 Active < 06/08/2012 Resolved Medications Medication Instructions Start Date End Date Status Multivitamins with Folic Acid 0.8 Refill(s) 0 02/28/2013 Ordered mg oral tablet
--- OUTSIDE RECORDS SUMMARY | 2017-06-09 05:43 | External Medical Summary | Continuity of Care Document ---
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 findings Previous Low Transverse - Matern care for oth or susp poor fetl - grth, third tri, unsp 31 weeks gestation of - Fam hx of congen malform, deformations - and chromsoml abnlt Previous Low Transverse - Encounter for suprvsn [...] second trimester 18 weeks gestation of - Supervision of other high risk - pregnancies, third trimester 31 weeks gestation of - Matern care for oth or susp poor fetl - grth, third tri, unsp 31 weeks gestation of - OCP Surveillance - Active Procedures Procedure Date Ultrasnd preg uterus, flwup/repeat Results Test Name Date and Time Measure Units Reference Range Abnormal Flag Comments Unknown Advance Directives Directive Yes / No Effective Date File Name Unknown Encounters Encounter Practice Location Reason(s) Diagnoses Date Provider Care Team Description For Visit Members Lisa Olmedo Supervision of Johnson Referring In Womens other high risk 1-201 Sheridan. Provider: Health PA, pregnancies, 7 700 Sher[place] Johnson PO Box [facility] Medical K, 700 1522, [facility] Medical Kristian, related Dr, [facility] Dr RIBERA, conditions, third 120, Meño 120, [id number], [id number] weeks Honorio Olmedo, [place] gestation of MOUNIKA RIBERA, tel:+ [phone]. [id number] , [place]. tel:[phone] tel: [phone] Lisa Olmedo Supervision of Nov-1 Johnson Referring In Womens other high risk 3-201 [place]. Provider: Sana MOTA, pregnancies, 7 700 [place] Johnson PO Box third [id number] Medical K, 700 1522, weeks gestation [facility], of , [facility] Dr RIBERA, 120, Meño 120, , Honorio Olmedo, MOUNIKA, MOUNIKA, tel: [phone]. , [place]. tel: tel: [phone] Lisa Olmedo Previous Low Nov-1 Johnson Referring In Womens Ultrasound Transverse 3-201 [place]. Provider: Sana MOTA, C-SectionMatern 7 700 [place] Johnson PO Box care for oth or Medical K, 700 1522, susp poor fetl [facility], gr, third rupali, , [facility] Dr RIBERA, [id number] weeks 120, Meño 120, , gestation of Honorio Olmedo, pregnancyFam hx MOUNIKA, MOUNIKA, tel: of congen [phone]. [facility], , [place]. tel: deformations and tel: [phone] [facility] [phone] Lisa Olmedo Matern care for Nov-0 Johnson Referring In Womens oth or susp poor 7-201 [place]. Provider: Sana MOTA, fetl grth, third 7 700 [place] Johnson PO Box tri, [id number] weeks Medical , 700 1522, gestation of [facility], , [facility] Dr RIBERA, 120, Meño 120, [id number], Honorio Olmedo, MOUNIKA, MOUNIKA, tel: [phone]. , [place]. tel: tel: [phone] Lisa Olmedo Encounter for Oct-2 Johnson Referring In Womens suprvsn of normal 3-201 [place]. Provider: Sana MOTA, , third 7 700 Sher[place] Johnson PO Box [email or web address] weeks Medical , 700 1522, gestation of [facility], , [facility] Dr RIBERA, 120, Meño 120, , Honorio Olmedo, MOUNIKA, MOUNIKA, tel:[phone]. , [place]. tel: tel: [phone] Lisa Olmedo Previous Low Oct-0 Johnson Referring In Womens Transverse 6-201 [place]. Provider: Health NAKUL, C-SectionEncounte 7 700 [place] Johnson PO Box r for suprvsn of [facility], 700 1522, normal , [facility] Kristian, [facility] , [facility] Dr RIBERA, [email or web address] weeks 120, Meño 120, , gestation of Honorio Olmedo, MOUNIKA, MOUNIKA, tel:[phone]. , [place]. tel: tel: [phone] Lisa Olmedo Supervision of Sep-0 Johnson Referring In Womens other high risk 5-201 Sher[place]. Provider: Health NAKUL, pregnancies, 7 700 Sher[place] Johnson PO Box second Medical , 700 1522, [email or web address] weeks [facility] Kristian, gestation of Dr, [facility] Dr RIBERA, 120, Meño 120, , Honorio Olmedo, MOUNIKA, MOUNIKA, tel: [phone]. , [place]. tel: tel: [phone] Lisa Olmedo Supervision of Aug-0 Johnson Referring In Womens other high risk 8-201 [place]. Provider: Health NAKUL, pregnancies, 7 700 [place] Johnsno PO Box second Medical , 700 1522, [id number] weeks [facility] Kristian, gestation of , [facility] Dr RIBERA, 120, Meño 120, , Honorio Olmedo, MOUNIKA, MOUNIKA, tel:[phone]. , [place]. tel: tel: [phone] Lisa Olmedo Supervision of Dec- Johnson Referring In Womens other high risk 0-201 [place]. Provider: Health NAKUL, pregnancies, 7 700 [place] Johnson PO Box first [id number] Medical , 700 1522, weeks gestation [facility] Kristian, of , [facility] Dr RIBERA, 120, Meño 120, , Honorio Olmedo, [facility], [place], tel: [phone]. , [place]. tel: tel: [phone] Lisa Olmedo Supervision of Johnson Referring In Womens other high risk 5-201 Sher[place]. Provider: Health PA, pregnancies, 7 700 Sher[place] Johnson PO Box first Medical , 700 1522, trimesterEncntr [facility] Kristian, screen for Dr, [facility] Dr RIBERA, infections w sexl 120, Meño 120, , mode of Honorio Olmedo, transmissEncounte CT, [place], tel: r for screening [phone]. for oth , [place]. tel: infec/parastc tel: [phone] diseasesEncounter [phone] for suprvsn of normal , first trimesterEncounte r for screening of [id number] weeks gestation of [facility] Irregular Butler Referring In Womens MensesEncounter Renée. Provider: Health NAKUL, for 7 700 Sher[place] Johnson PO Box test, result Medical , 700 1522, positive Center Lilian Townsend, , [facility] Dr RIBERA, 120, Meño 120, [id number], Honorio Olmedo, [facility], [place], tel: [phone]. , [place]. tel: tel: [phone] Lisa Olmedo Acute upper October- Soham Referring In Womens respiratory 8- Izzy. Provider: Health NAKUL, infection, 7 700 [place] Johnson PO Box unspecifiedAcute Medical K, 700 1522, bronchitis, [place] Lilian Townsend, unspecified , [facility] Dr RIBERA, 120, Meño 120, , Honorio Olmedo, [place], [place], tel: [phone]. , [place]. 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 Provider: Sana MOTA, (routine) w/o abn 7 700 Sheridan Mckeonb PO Box [facility] Medical K, 700 1522, [place] [address], [facility] [place], 120, [place] 120, [id number], Honorio [place], [place], tel:[phone]. , [place]. tel: tel: [phone] Lisa Olmedo Unspecified lump Nov-2 Means Referring In Womens in breast 1-201 Mar. Provider: Sana MOTA, 6 700 Sheridan Johnson PO [facility] , 700 1522, [place] [address], [facility] [place], 120, Me[place] 120, [id number], Honorio [place], [place], [place], tel:+ [phone]. , [place]. tel: tel: [phone] Lisa Olmedo Yogesh-2 Johnson Referring In Womens 7- Sheridan. Provider: Sana MOTA, 5 700 Sheridan Johnson [facility] Medical , 700 1522, [place] [address], [facility] Dr RIBERA, 120, Meño 120, [id number], Honorio [place], [place], tel: [phone]. , [place]. tel: tel: [phone] Lisa Olmedo Yogesh-0 Means In Womens 8-201 Mar. Sana MOTA, 3 700 [facility] [address], [address], [place], 120, [id number], [place], [place], tel: [phone] , [place]. tel: [phone] Lisa Olmedo Yogesh-0 Johnson In Womens 6-201 Sher[place]. Sana MOTA, 3 700 [facility] 15[address], [address], [place], 120, [id number], [place], [place], tel:[phone] , [place]. tel: [phone] Family History Family Member Diagnosis Age At [...] Insurance type Covered alliance party ID Authorization(s) [place] [id number] [place] [id number] [place] [id number] [place] [id number] [place] [id number] [place] [id number] Social History Type Description Quantity Date Captured Unknown Vital Signs Date / Height Weight BMI Pulse Blood Temperature Respiratory Body Head BMI Time: Rate Pressure Rate Surface Circumference percentile Area Unknown Chief Complaint And Reason For Visit Unknown Chief Complaint And Reason For Visit Reason For Referral Reason For Referral Unknown Plan Of Care Date Type Action Status Appointment Sheridan Blount BOOKED Appointment Sheridan Blount [facility] [place]ED Future Order: Radiology Order Ultrasound OB Follow-up ([id number]) Ordered Future Order: Radiology Order Diagnostic Mammogram Right Breast Ordered ([id number]) Future Order: Radiology Order Breast Ultrasound Right Breast Ordered ([id number]) Date Type Problem Goal Intervention Status Start [...]
--- OUTSIDE RECORDS SUMMARY | 2017-06-09 05:43 | External Medical Summary | CCD ---
:1985 Author Organization [facility] Care Team Providers Name Role Phone Marco Lerma Consulting Provider [phone] Sheridan Johnson Referring Provider [phone] No, PCP Primary Care Provider Unavailable Allergies, [...] Related Diagnosis Doppler echocardiography color flow velocity 01/21/2017 00:00:00 mapping (List separately in addition to codes for echocardiography)
--- OUTSIDE RECORDS SUMMARY | 2017-06-09 05:43 | External Medical Summary | Continuity of Care Document ---
:1985 Author Organization [facility] [employer] [facility] Address [address] [place], [place] [address] Phone Care Team Providers Name Role Phone [...] (start - stop) Clinical Status Encntr for cost recorder exam (general) - (routine) w/o abn findings Previous Low Transverse - Encounter for suprvsn of normal - , second trimester 26 weeks gestation of - Encounter for suprvsn of normal - , third trimester 28 weeks gestation of - Acute upper respiratory [...] other high risk - pregnancies, third trimester Previous Low Transverse - 36 weeks gestation of - Fam hx of congen malform, deformations - and chromsoml abnlt Supervision of other high risk - pregnancies, third trimester Oth related conditions, - third trimester 34 weeks gestation of - Supervision of other [...] OCP Surveillance - Active Procedures Procedure Date Unknown Results Test Name Date and Time Measure Units Reference Range Abnormal Flag Comments Unknown Advance Directives Directive Yes / No Effective Date File Name Unknown Encounters Encounter Practice Location Reason(s) Diagnoses Date Provider Care Team Description For Visit Members Lisa Olmedo Supervision of Johnson Referring In Womens other high risk 8-201 Sher[place]. Provider: Health PA, pregnancies, 7 700 Sheridan Johnson PO Box [facility] Medical K, 700 1285, trimesterPrevious Center Medical Kristian, Low Transverse Dr, Meño Center Dr RIBERA, C-Inhllnp25 weeks 120, Meño 120, [id number], gestation of Honorio [place], pregnancyFam hx [place], [place]OU[place], tel:[phone] of congen [phone]. [facility], , [place]. tel: deformations and tel: [phone] chromsoml abnlt [phone] Lisa Olmedo Dec-0 Johnson In Womens 4-201 Sher[place]. Health NAKUL, 7 700 [address] Medical [address], Porter Kristian, , Meño RIBERA, 120, [id number], [place], tel: [phone] , [place]. tel: [phone] Lisa Olmedo Supervision of Dec-0 Johnson Referring In Womens other high risk 1-201 Sheridan. Provider: Health NAKUL, pregnancies, 7 700 Sher[place] Johnson PO Box third Medical K, 700 1522, [facility]Oth [facility], related , [facility] Dr RIBERA, conditions, third 120, Meño 120, [id number], [id number] weeks Honorio Olmedo, gestation of MOUNIKA RIBERA, tel: [phone]. , [place]. tel: tel: [phone] Lisa Olmedo Supervision of Nov-1 Johnson Referring In Womens other high risk 3-201 [place]. Provider: Health NAKUL, pregnancies, 7 700 [place] Johnson PO Box third [id number] Medical K, 700 1522, weeks gestation [facility] Kristian, of Dr, [facility] Dr RIBERA, 120, Meño 120, [id number], Honorio [place], [place], [place], tel: [phone]. , [place]. tel: tel: [phone] Lisa Olmedo Previous Low Nov-1 Johnson Referring In Womens Ultrasound Transverse 3-201 [place]. Provider: Health NAKUL, C-SectionMatern 7 700 Sher[place] Johnson PO Box care for oth or Medical K, 700 1522, susp poor fetl [facility] Kristian, grth, third tri, , [facility] Dr RIBERA, unsp31 weeks 120, Meño 120, [id number], gestation of Honorio [place], pregnancyFam hx MOUNIKA, MOUNIKA, tel: of congen [phone]. malform, , [place]. tel: deformations and tel: [phone] [facility] abnlt [phone] Associates [facility] Matern care for Nov-0 Johnson Referring In Womens oth or susp poor 7-201 [place]. Provider: Sana MOTA, fetl grth, third 7 700 [place] Johnson PO Box tri, unsp31 weeks Medical , 700 1522, gestation of [facility] [place], , [facility] Dr RIBERA, 120, Meño 120, , Honorio [place], MOU[place]KA, MOUNIKA, tel:[phone]. , [place]. tel: tel: [phone] iLsa Olmedo Encounter for Oct-2 Johnson Referring In Womens suprvsn of normal 3-201 [place]. Provider: Sana MOTA, , third 7 700 [place] Johnson PO Box [id number] weeks Medical , 700 1522, gestation of [facility], , [facility] Dr RIBERA, 120, Meño 120, , Honorio [place], MOUNIKA, MOUNIKA, tel: [phone]. , [place]. tel: tel: [phone] Lisa Olmedo Previous Low Oct-0 Johnson Referring In Womens Transverse 6-201 [place]. Provider: Sana MOTA, C-SectionEncounte 7 700 Sheridan Johnson PO Box r for suprvsn of Medical , 700 1522, normal , [facility] Kristian, [facility] , [facility] Dr RIBERA, [id number] weeks 120, Meño 120, , gestation of Honorio [place], [place]OU[place]KA, MOUNIKA, tel: [phone]. , [place]. tel: tel: [phone] Lisa Olmedo Supervision of Sep-0 Johnson Referring In Womens other high risk 5-201 [place]. Provider: Sana MOTA, pregnancies, 7 700 Hseridan Johnson PO Box second Medical K, 700 1522, weeks [facility] Kristian, gestation of , [facility] Dr RIBERA, 120, Meño 120, , Honorio [place], [place], tel: [phone]. , [place]. tel: tel: [phone] Lisa Olmedo Supervision of Johnson Referring In Womens other high risk 8-201 [place]. Provider: Health NAKUL, pregnancies, 7 700 Sheridan Johnson PO Box [facility] Medical , 700 1522, [email or web address] weeks [facility], gestation of Dr, [facility] Dr RIBERA, 120, Meño 120, , Honorio [place], MOU[place]KA, MOUNIKA, tel: [phone]. , [place]. tel: tel: [phone] Lisa Olmedo Supervision of Johnson Referring In Womens other high risk 0-201 [place]. Provider: Health NAKUL, pregnancies, 7 700 [place] Johnson PO Box first [id number] Medical , 700 1522, weeks gestation [facility], of Dr, [facility] Dr RIBERA, 120, Meño 120, , Honorio [place], [place], [place], tel: [phone]. , [place]. tel: tel: [phone] Lisa Olmedo Supervision of Johnson Referring In Womens other high risk 5-201 [place]. Provider: Health NAKUL, pregnancies, 7 700 Sher[place] Johnson PO Box first Medical , 700 1522, trimesterEncntr [facility], screen for , [facility] Dr RIBERA, infections w sexl 120, Meño 120, , mode of Honorio [place], transmissEncounte MOUNIKA, MOUNIKA, tel: r for screening [phone]. for ot , [place]. tel: infec/parastc tel: [phone] diseasesEncounter [phone] for suprvsn of normal , first trimesterEncounte r for screening of [id number] weeks gestation of Lisa Olmedo Irregular Butler Referring In Womens MensesEncounter 9-201 Renée. Provider: Health NAKUL, for 7 700 [place] Johnson PO Box test, result Medical K, 700 1522, positive Porter [address] Dr, [facility] Center Dr RIBERA, 120, Meño 120, [id number], Honorio [place], [place], [place], tel: [phone]. , [place]. tel: tel: [phone] Lisa Olmedo Acute upper October-0 Soham Referring In Womens respiratory Izzy. Provider: Health NAKUL, infection, 7 700 [place] Johnson PO Box unspecifiedAcute Medical K, 700 1522, bronchitis, Porter Lilian Townsend, nisaified Dr, [facility] Center Dr RIBERA, 120, Meño 120, [id number], Honorio [place], [place], [place], tel: [phone]. , [place]. tel: tel: [phone] Lisa Olmedo Encntr for cost recorder Jul- Johnson Referring In Womens exam (general) Sheridan. Provider: Sana MOTA, (routine) w/o abn 7 700 [place] Johnson PO Box findings Medical K, 700 1522, Porter [address], [facility] Center Dr RIBERA, 120, Meño 120, [id number], Honorio [place], [place], [place], tel: [phone]. , [place]. tel: tel: [phone] Lisa Olmedo Unspecified lump Apr- Means Referring In Womens in breast [facility]. Provider: Sana MOTA, 6 700 [place] Johnson PO Box Medical K, 700 1522, Porter [address], [facility] Center Dr RIBERA, 120, Meño 120, [id number], [place], [place], [place], tel:[phone]. , [place]. tel: tel: [phone] Lisa Olmedo Jun- Johnson Referring In Womens - Sheridan. Provider: Sana MOTA, 5 700 Sher[place] Johnson PO Box Medical K, 700 1522, Porter [address], [facility] Dr [place], 120, Meño 120, [id number], [place], [place], [place], tel: [phone]. , [place]. tel: tel: [phone] Associates [facility] Yogesh-0 Means In Womens 8-201 Mar. [facility], 3 700 PO [address] Medical [address], [address] Dr Kristian, [facility] [place], 120, [id number], [facility] [place], tel: [phone] , [place]. tel: [phone] Associates [facility] Yogesh-0 Johnson In Womens 6-201 [place]. [facility], 3 700 [address] Medical [address], [address] Dr Kristian, [facility] [place], 120, [id number], [facility] [place], tel: [phone] , [place]. tel: [phone] Family History Family Member Diagnosis Age At [...] Insurance type Covered alliance party ID Authorization(s) [facility] [id number] [facility] [id number] [facility] [id number] [facility] [id number] [facility] [id number] [facility] [id number] Social History Type Description Quantity Date Captured [...] Appointment Sheridan Blount BOOKED Appointment Sheridan Blount [facility] R C/S BOOKED Future Order: Radiology Order Diagnostic Mammogram Right Breast Ordered ([id number]) Future Order: Radiology Order Breast Ultrasound Right Breast Ordered ([id number]) Future Order: Radiology Order Ultrasound OB Follow-up ([id number]) Ordered Date Type Problem Goal Intervention Status [...]
--- OUTSIDE RECORDS SUMMARY | 2017-06-09 05:44 | External Medical Summary | Continuity of Care Document ---
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 Dr RIBERA, 120, Meño 120, [id number], Honorio [place], MOUNIKA RIBERA, tel: [phone]. [phone] , [place]. tel: tel: [phone] Lisa Olmedo Previous Low Apr- Johnson Referring In Womens Ultrasound Transverse 3-201 [place]. Provider: Sana MOTA, C-SectionMatern 7 700 [place] Johnson PO Box care for oth or Medical K, 700 1522, susp poor fetl [facility] Kristian salome, third rupali, , [facility] Dr RIBERA, unsp31 weeks 120, Meño 120, [id number], gestation of Honorio Olmedo, pregnancyFam hx MOUNIKA, MOUNIKA, tel: of congen [phone]. [facility], , [place]. tel: deformations and tel: [phone] [facility] [phone] Lisa Olmedo Matern care for Nov-0 Johnson Referring In Womens oth or susp poor 7-201 [place]. Provider: Sana MOTA, fetl kishoer, third 7 700 Sher[place] Johnson PO Box tri, unsp31 weeks Medical K, 700 1522, gestation of [facility] Kristian, , [facility] Dr RIBERA, 120, Meño 120, , Honorio [place], MOU[place]KA RIBERA, tel: [phone]. , [place]. tel: tel: [phone] Lisa Olmedo Encounter for Oct-2 Johnson Referring In Womens suprvsn of normal 3-201 [place]. Provider: Sana MOTA, , third 7 700 Sher[place] Johnson PO Box [id number] weeks Medical K, 700 1522, gestation of [facility] Kristian, Dr, [facility] Dr RIBERA, 120, Meño 120, , Honorio [place]o, MOUNIKA RIBERA, tel: [phone]. , [place]. tel: tel: [phone] Lisa Olmedo Previous Low Oct-0 Johnson Referring In Womens Transverse 6-201 [place]. Provider: Sana MOTA, C-SectionEncounte 7 700 Sher[place] Johnson PO Box r for suprvsn of Medical K, 700 1522, normal , [facility] Kristian, second , [facility] Dr RIBERA, [id number] weeks 120, Meño 120, , gestation of Honorio Olmedo, MOUNIKA RIBERA, tel: [phone]. , [place]. tel: tel: [phone] Lisa Olmedo Supervision of Sep-0 Johnson Referring In Womens other high risk 5-201 [place]. Provider: Health PA, pregnancies, 7 700 Sher[place] Johnson PO Box second Medical K, 700 1522, [id number] weeks [facility], gestation of , [facility] Dr RIBERA, 120, Meño 120, , Honorio Olmedo, MOUNIKA RIBERA, tel: [phone]. , [place]. tel: tel: [phone] Lisa Olmedo Supervision of Aug-0 Johnson Referring In Womens other high risk 8-201 [place]. Provider: Health PA, pregnancies, 7 700 Sher[place] Johnson PO Box second Medical , 700 1522, [id number] weeks [facility], gestation of , [facility] Dr RIBERA, 120, Meño 120, , Honorio Olmedo, MOUNIKA RIBERA, tel: [phone]. , [place]. tel: tel: [phone] Lisa Olmedo Supervision of Selvin- Johnson Referring In Womens other high risk 0-201 [place]. Provider: Health PA, pregnancies, 7 700 Sher[place] Johnson PO Box first Medical , 700 1522, weeks gestation [facility], of , [facility] Dr RIBERA, 120, Meño 120, , Honorio Olmedo, MOUNIKA RIBERA, tel: [phone]. , [place]. tel: tel: [phone] Lisa Olmedo Supervision of José Luis-1 Johnson Referring In Womens other high risk 5-201 [place]. Provider: Health PA, pregnancies, 7 700 [place] Johnson PO Box first Medical , 700 1522, trimesterEncntr [facility], screen for , [facility] Dr RIBERA, infections w sexl 120, Meño 120, , mode of Honorio Olmedo, transmissEncounte MOUNIKA RIBERA, tel: r for screening [phone]. for ot , [place]. tel: infec/parastc tel: [phone] diseasesEncounter [id number] for suprvsn of normal , first trimesterEncounte r for screening of [id number] weeks gestation of [facility] Irregular Butler Referring In Womens MensesEncounter Renée. Provider: Sana MOTA, for 7 700 [place] Johnson PO Box test, result Medical , 700 1522, positive Center Lilian [address], [facility] Center Dr RIBERA, 120, Meño 120, [id number], Honor[place], [place], [place], tel: [phone]. , [place]. tel: tel: [phone] Lisa Olmedo Acute upper Soham Referring In Womens respiratory Izzy. Provider: Sana MOTA, infection, 7 700 [place] Johnson PO Box unspecifiedAcute Medical K, 700 1522, bronchitis, Staley Lilian Townsend, deonte Dang, [facility] Dr RIBERA, 120, Meño 120, [id number], Honor[place], [place], [place], tel: [phone]. , [place]. 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 Provider: Sana MOTA, (routine) w/o abn 7 700 [place] Johnson PO Box findings Medical K, 700 1522, [address], [facility] Dr RIBERA, 120, Meño 120, [id number], Honor[place], [place], [place], tel: [phone]. , [place]. tel: tel: [phone] Lisa Olmedo Unspecified lump Apr- Means Referring In Womens in breast Mar. Provider: Sana MOTA, 6 700 [place] Johnson PO Box Medical , 700 1522, Staley [address], [facility] Dr RIBERA, 120, Meño 120, [id number], Honor[place], [place], tel: [phone]. , [place]. tel: tel: [phone] Lisa Olmedo Yogesh-2 Johnson Referring In Womens 7-201 Sher[place]. Provider: Health PA, 5 700 Sheridan Johnson PO Box Medical K, 700 1522, [address]aley [address], [facility] [place], 120, Meño 120, [id number], Honor[place], [place], [place], tel: [phone]. , [place]. tel: tel: [phone] Lisa Olmedo Yogesh-0 Means In Womens 8-201 Mar. Health PA, 3 700 PO Box Medical 1522, [address] Dr Kristian, [facility] [place], 120, [id number], [place], [place], tel: [phone] , [place]. tel: [phone] Lisa Olmedo Yogesh-0 Johnson In Womens 6-201 Sheridan. Health PA, 3 700 PO Box Medical 1522, [address] Dr Kristian, [facility] [place], 120, [id number], [facility] [place], tel: [phone] , [place]. tel: [phone] Family History Family Member Diagnosis Age At [...] name Insurance type Covered republican ID Authorization(s) [facility] [place] [id number] [place] [id number] [employer] [place] [id number] [facility] [place] [id number] [facility] [place] [id number] [facility] [place] [id number] Social History Type Description Quantity Date Captured Alcohol Use Details No Caffeine Use Details Unknown Tobacco Use Status Unknown Smoking Status Never smoker Vital Signs Date / Height Weight BMI Pulse Blood Temperature Respiratory Body Head BMI Time: Rate Pressure Rate Surface Circumference percentile Area 186.10 30.9 133/76 -2017 lbs 6 mm[Hg] 4:38 kg/m PM eter (2) Chief Complaint And Reason For Visit Unknown Chief Complaint And Reason For Visit Reason For Referral Reason For Referral Unknown Plan Of Care Date Type Action Status Appointment Sheridan Blount BOOKED Appointment Sheridan Blount [facility] R C/S BOOKED Future Order: Radiology Order Diagnostic Mammogram Right Breast Ordered ([id number]) Future Order: Radiology Order Breast Ultrasound Right Breast Ordered ([id number]) Future Order: Radiology Order Ultrasound OB Follow-up ([id number]) Ordered Date Type Problem Goal Intervention Status [...]
--- OUTSIDE RECORDS SUMMARY | 2017-06-09 05:44 | External Medical Summary | Continuity of Care Document ---
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 Dr RIBERA, 120, Meño 120, , Honorio Olmedo, MOUNIKA RIBERA, tel: [phone]. , [place]. tel: tel: [phone] Lisa Olmedo Supervision of Johnson Referring In Womens other high risk 5-201 Sheridan. Provider: Sana MOTA, pregnancies, first 7 700 Sheridan Johnson PO Box trimesterEncntr Medical , 700 1522, screen for [facility] Kristian, infections w rajat Dang, [facility] Dr RIBERA, mode of 120, Meño 120, , transmissEncounter Honorio [place], for screening for [place], [place], tel: ot infec/parastc [phone]. [facility] , . tel: for suprvsn of tel: [phone] normal , [id number] first trimesterEncounter for screening of dozzgx30 weeks gestation of Associates [place] Irregular Butler Referring In [facility] for 9-201 Renée. Provider: Sana MOTA, test, 7 700 [place] Johnson PO Box result positive Medical K, 700 1522, [place] [address], [facility] Dr RIBERA, 120, Meño 120, , Honorio Olmedo, [place]OU[place]KA RIBERA, tel: [phone]. , [place]. tel: tel: [phone] Lisa Olmedo Acute upper October-0 Soham Referring In Womens respiratory 8-201 Izzy. Provider: Sana MOTA, infection, 7 700 Sheridan Johnson PO Box unspecifiedAcute Medical K, 700 1522, bronchitis, [place] [address], [facility] [place], 120, Meño 120, [id number], Honor[place], [place], [place], tel: [phone]. , [place]. 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 Provider: Health NAKUL, w/o abn findings 7 700 Sheridan Johnson PO Box Medical K, 700 1522, [place] [address], [facility] [place], 120, Meño 120, [id number], Honorio [place], [place], [place], tel: [phone]. , [place]. tel: tel: [phone] Lisa Olmedo Unspecified lump in Means Referring In Womens breast - Mar. Provider: Health NAKUL, 6 700 [place] Johnson PO Box Medical K, 700 1522, [place] [address], [facility] Dr RIBERA, 120, Meño 120, [id number], Honorio Ol[place], [place], [place], tel: [phone]. , [place]. tel: tel: [phone] Lisa Olmedo Johnson Referring In Womens Sheridan. Provider: Health NAKUL, 5 700 Sheridan Johnson PO Box Medical K, 700 1522, [place] [address], [facility] Dr RIBERA, 120, Meño 120, [id number], Honorio [place], [place], [place], tel: [phone]. , [place]. tel: tel: [phone] Lisa Olmedo Jun-0 Means In Womens 8- Mar. Health NAKUL, 3 700 PO Box Medical 1522, [address], [facility] [place], 120, [id number], [place], [place], tel:[phone] , . tel: [phone] Lisa Olmedo Johnson In Womens 6-201 Sheridan. [facility], 3 700 PO [place] [facility] 15[address], [place] [address] Kristian, [facility] [place], 120, [id number], [place], [place], tel:[phone] , . tel: [phone] Family History Family Member Diagnosis Age At Onset No family history of Thrombosis Mother Gestational Diabetes Maternal Grandfather Diabetes mellitus Son Cardiovascular Disease Mother Gynecological Problem Immunizations Vaccine Date Status Comments Influenza, injectable, completed Source: New Immunization Record quadrivalent, preservative free, 3 yrs or older Payers Payer name Insurance type Covered alliance party ID Authorization(s) [facility] [id number] Everence [id number] [facility] [id number] Social History Type Description Quantity Date Captured Alcohol Use Details No Caffeine Use Details Unknown Tobacco Use Status Unknown Smoking Status Never smoker Vital Signs Date / Height Weight BMI Pulse Blood Temperature Respiratory Body Head BMI Time: Rate Pressure Rate Surface Circumference percentile Area 159.80 35.6 / lbs 5 mm[Hg] 4:13 kg/m PM eter (2) Chief Complaint And Reason For Visit Unknown Chief Complaint And Reason For Visit Reason For Referral Reason For Referral Unknown Plan Of Care Date Type Action Status Appointment Sheridan Blount BOOKED Future Order: Radiology Order Diagnostic Mammogram Right Breast Ordered ([id number]) Future Order: Radiology Order Breast Ultrasound Right Breast Ordered ([id number]) Date Type Problem Goal Intervention Status Start [...]
--- OUTSIDE RECORDS SUMMARY | 2017-06-09 05:44 | External Medical Summary | Continuity of Care Document ---
:1985 Author Organization [facility] Allergies Active Description Code Type Severity Reaction Onset Reported/ Identified Relationship Clinical to Patient Status Yes No Known 53643 3 N/A N/A Drug 0 Allergies Medications Medication Packaging Start Date Stop Date Route Dosage Sig RACIEL Packet 07/04/2014 6 take 1 tablet by oral route every day Tablet 07/04/2014 LEXAPRO 6 take 1 tablet by oral route every day Tablet 10/13/2016 AZITHROMYCIN 7 take 2 tablet by oral route every day for 1 day then 1 tablet (250 mg) by oral route once daily for 4 days Syringe 03/30/2017 RHOPHYLAC Tablet 05/08/2017 AMOXICILLIN 7 take 1 tablet by oral route every 8 hours Problems Date Dx Attending Type Code Diagnosis Diagnosed By Coded 04/20/2017 Sheridan Johnson O34.211 Previous Low Transverse 04/20/2017 Sheridan Johnson O36.5930 Matern care for oth or susp poor fetl grth, third tri, unsp 04/20/2017 Sheridan Johnson Z3A.31 31 weeks gestation of 04/20/2017 Sheridan Johnson Z82.79 Fam hx of congen malform, deformations and chromsoml abnlt Procedures Code [place] [address] Ultrasnd 04/20/2017 preg uterus, flwup/repeat Results There is no data. Encounters ACCT No. Visit Discharge Status Pt. Type Provider Facility Loc./Unit Complaint Date/Time [id number] 05/25/2017 05/25/2017 [facility] Outpatient Johnson, 16:30:00 23:59:59 Sheridan Victor [id number] 05/11/2017 05/11/2017 [facility] Outpatient Johnson, 08:52:00 23:59:59 Sheridan Victor [id number] 05/08/2017 05/08/2017 [facility] Outpatient Johnson, 08:20:00 23:59:59 Sheridan Victor [id number] 04/20/2017 04/20/2017 [facility] Out[facility] Johnson, 15:35:00 23:59:59 Sheridan Victor [id number] 04/20/2017 04/20/2017 [facility] Out[facility] Johnson, 15:15:00 23:59:59 Sheridan Victor [id number] 04/14/2017 04/14/2017 [facility] Out[facility] Johnson, 16:30:00 23:59:59 Sheridan Victor [id number] 03/30/2017 03/30/2017 [facility] Outpatient Johnson, 13:50:00 23:59:59 Sheridan Victor [id number] 03/13/2017 03/13/2017 [facility] Outpatient Johnson, 09:00:00 23:59:59 Sheridan Victor [id number] 02/10/2017 02/10/2017 [facility] Outpatient Johnson, 15:50:00 23:59:59 Sheridan Victor [id number] 01/13/2017 01/13/2017 [facility] Outpatient Johnson, 16:15:00 23:59:59 Sheridan Victor [id number] 12/15/2016 12/15/2016 [facility] Outpatient Johnson, 16:15:00 23:59:59 Sheridan Victor [id number] 12/01/2016 12/01/2016 [facility] Outpatient Johnson, 09:31:00 23:59:59 Sheridan Victor [id number] 11/30/2016 11/30/2016 [facility] Outpatient Johnson, 16:42:00 23:59:59 Sheridan Victor [id number] 11/20/2016 11/20/2016 [facility] Out[facility] Johnson, 10:45:00 23:59:59 Sheridan Victor [id number] 10/24/2016 10/24/2016 [facility] Outpatient Butler, 13:30:00 23:59:59 Renée Moreno [id number] 10/13/2016 10/13/2016 [facility] Outpatient Soham, 09:15:00 23:59:59 Izzy [id number] 10/07/2016 10/07/2016 [facility] Out[facility] Johnson, 10:37:00 23:59:59 Sheridan Victor [id number] 08/04/2016 08/04/2016 [facility] Outpatient Johnson, 15:00:00 23:59:59 Sheridan Victor [id number] 05/06/2016 05/06/2016 [facility] Outpatient Johnson, 09:05:00 23:59:59 Sheridan Victor [id number] 04/28/2016 04/28/2016 [facility] Outpatient Means, 14:00:00 23:59:59 Mar Carpenter [id number] 04/28/2016 Document 14:06:27 Registration
--- OUTSIDE RECORDS SUMMARY | 2017-06-09 05:44 | External Medical Summary | Continuity of Care Document ---
:1985 Author Organization [facility] Address [address] [place], [place] [id number] Phone Care Team Providers Name Role Phone Haleigh Charles APRN Unavailable Unavailable Allergies, Adverse Reactions, Alerts Substance Reaction Severity Status No Known Drug Allergies Unknown Active Medications Medication Instructions Dosage Effective Dates Status Comments (start - stop) Rhophylac 1,500 - Active unit (300 mcg)/2 mL injection syringe Tylenol 8 Hour take 2 tablet by - Active 650 mg oral route every tablet,extended 8 hours as needed release Plus 27 take 1 tablet by Not Available - Active mg-1 mg tablet oral route every day Zyrtec 10 mg as needed - Active capsule amoxicillin 500 take 1 tablet by 500 MG - No Longer mg tablet oral route every Active 8 hours Problems Condition Effective Dates (start - stop) Clinical Status 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 Supervision of other high risk - pregnancies, third trimester Oth related conditions, - third trimester 34 weeks gestation of - Previous Low Transverse [...] Procedures Procedure Date OB Visit No Charge Urine Culture Cult, bactr, ident isolate, urine Cult bactr, aerobic, addl methods Results Test Name Date and Time Measure Units Reference Range Abnormal Flag Comments Panel Description: Bacteria identified in Urine by Culture CULTURE, URINE, SEE NOTE A CULTURE, URINE, ROUTINE MICRO ROUTINE 09:13:00 NUMBER: [id number] TEST STATUS: FINAL SPECIMEN SOURCE: URINE SPECIMEN QUALITY: ADEQUATE RESULT: 10,000-50,000 CFU/mL of Group B Streptococcus isolated Beta-hemolytic Streptococci are predictably susceptible to penicillin and other beta-lactams. Susceptibility testing not routinely performed. COMMENT: Erythromycin and clindamycin are not recommended for treatment of urinary tract infections, but clindamycin may be useful for treatment of rectovaginal colonization or infection. Any amount of group B Streptococcus in urine specimens obtained from females is a marker of genital tract colonization. If this patient is , please refer to ACOG guidelines for appropriate screening and management of women. COMMENT: Additional organism(s) less than 10,000 CFU/mL isolated. These organisms, commonly found on external and internal genitalia, are considered colonizers. No further testing performed.REPORT COMMENT:RFASTING:UNKNOWNTest performed at [facility] [id number] [place] [address]Lbueuysk: GAYATRI ENNIS DO,MPH Advance Directives Directive Yes / No Effective Date File Name Unknown Encounters Encounter Practice Location Reason(s) Diagnoses Date Provider Care Team Description For Visit Members Lisa Olmedo Supervision of Johnson Referring In Womens other high risk 8-201 Sheridan. Provider: Health [place], pregnancies, 7 700 Sheridan Johnson [address] [facility], [address] [address], [facility], Low Transverse , [facility] Dr RIBERA, [id number] weeks 120, [place] 120, , [facility] pregnancyFam hx MOUNIKA RIBERA, tel: of congen [phone]. [facility] [place]. tel: deformations and tel: [phone] [facility] [phone] Lisa Olmedo Supervision of Johnson Referring In Womens other high risk 1-201 Sheridan. Provider: Health [place], pregnancies, 7 700 Sheridan Johnson PO Box [facility], 700 1522, trimesterOth [facility] [place], related Dr, [facility] Dr RIBERA, conditions, third 120, [place] 120, [id number], [id number] weeks Honorio [place], gestation of MOUNIKA RIBERA, tel: [phone]. , [place]. tel: tel: [phone] Lisa Olmedo Supervision of Nov-1 Johnson Referring In Womens other high risk 3-201 Sheridan. Provider: Sana MOTA, pregnancies, 7 700 Sheridan Johnson [address] Box third [email or web address] Medical [place], 700 1522, weeks gestation [facility], of , [facility] Dr RIBERA, 120, [place] 120, [id number], Honorio Olmedo, [place], [place], tel: [phone]. , [place]. tel: tel: [phone] Lisa Olmedo Previous Low Nov-1 Johnson Referring In Womens Ultrasound Transverse 3-201 Sheridan. Provider: Sana MOTA, C-SectionMatern 7 700 Sheridan Johnson PO Box care for oth or Medical K, 700 1522, susp poor fetl [facility], gr, third tri, , [facility] Dr RIBERA, unsp31 weeks 120, [place] 120, , gestation of Honorio Olmedo, pregnancyFam hx MOUNIKA, MOUNIKA, tel: of congen [phone]. [facility], , [place]. tel: deformations and tel: [phone] [facility] abnlt [phone] Lisa Olmedo Matern care for Nov-0 Johnson Referring In Womens oth or susp poor 7-201 Sheridan. Provider: Sana MOTA, fetl [facility], third 7 700 Sheridan Johnson PO Box tri, unsp31 weeks Medical K, 700 1522, gestation of [facility] [place], , [facility] Dr RIBERA, 120, [place] 120, , Honorio Olmedo, MOUNIKA RIBERA, tel: [phone]. , [place]. tel: tel: [phone] Lisa Olmedo Encounter for Oct-2 Johnson Referring In Womens suprvsn of normal 3-201 Sheridan. Provider: Sana MOTA, , third 7 700 Sheridan Johnson PO Box weeks Medical K, 700 1522, gestation of [facility] [place], , [facility] Dr RIBERA, 120, Me[place] 120, , Honorio Olmedo, MOUNIKA RIBERA, tel: [phone]. , [place]. tel: tel: [phone] Lisa Olmedo Previous Low Oct-0 Johnson Referring In Womens Transverse 6-201 Sheridan. Provider: Health NAKUL, C-SectionEncounte 7 700 Sheridan Johnson PO Box r for suprvsn of Medical , 700 1522, normal , [facility] [place], [facility] , [facility] Dr RIBERA, [id number] weeks 120, [place] 120, , gestation of Honorio Olmedo, MOUNIKA, MOUNIKA, tel: [phone]. , [place]. tel: tel: [phone] Lisa Olmedo Supervision of Sep-0 Johnson Referring In Womens other high risk 5-201 Sheridan. Provider: Health NAKUL, pregnancies, 7 700 Sheridan Johnson PO Box second Medical , 700 1522, [id number] weeks [facility] [place], gestation of , [facility] Dr RIBERA, 120, Me[place] 120, , Honorio Olmedo, MOUNIKA RIBERA, tel: [phone]. , [place]. tel: tel: [phone] Lisa Olmedo Supervision of Aug-0 Johnson Referring In Womens other high risk 8-201 Sheridan. Provider: Health NAKUL, pregnancies, 7 700 Sheridan Johnson PO Box second Medical , 700 1522, weeks [facility] [place], gestation of Dr [facility] Dr RIBERA, 120, Meño 120, , Honorio Olmedo, MOUNIKA RIBERA, tel: [phone]. , [place]. tel: tel: [phone] Lisa Olmedo Supervision of Johnson Referring In Womens other high risk 0-201 Sheridan. Provider: Health NAKUL, pregnancies, 7 700 Sheridan Johnson PO Box first [id number] Medical K, 700 1522, weeks gestation [facility] [place], of , [facility] Dr RIBERA, 120, Meoñ 120, [id number], Honorio Olmedo, MOUNIKA RIBERA, tel:[phone]. , [place]. tel: tel: [phone] Lisa Olmedo Supervision of Johnson Referring In Womens other high risk 5- Sheridan. Provider: Health NAKUL, pregnancies, 7 700 Sheridan Johnson PO Box first Medical K, 700 1522, trimesterEncntr [facility] [place], screen for Dr, [facility] Dr RIBERA, infections w sexl 120, [place] 120, , mode of Honorio Olmedo, transmissEncounte [place], [place], tel: r for screening [phone]. for oth , [place]. tel: infec/parastc tel: [phone] diseasesEncounter [phone] for suprvsn of normal , first trimesterEncounte r for screening of [id number] weeks gestation of Associates Honorio Irregular Butler Referring In Womens MensesEncounter Renée. Provider: Sana MOTA, for 7 700 Sheridan Johnson PO Box test, result Medical K, 700 1522, positive [facility], , [facility] Dr RIBERA, 120, Me[place] 120, , Honorio Olmedo, [place], [place], tel: [phone]. , [place]. tel: tel: [phone] Lisa Olmedo Acute upper October- Soham Referring In Womens respiratory Izzy. Provider: Health NAKUL, infection, 7 700 Sheridan Johnson PO Box unspecifiedAcute Medical K, 700 1522, bronchitis, [facility] [place], unspecified Dr, [facility] Dr RIBERA, 120, [place] 120, , Honorio Olmedo, [place], [place], tel: [phone]. , [place]. 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 Provider: Health NAKUL, (routine) w/o abn 7 700 Sheridan Johnson PO Box [facility] Medical , 700 1522, [address], [facility] [place], 120, [place] 120, [id number], Honorio Olmedo, [place], [place], tel: [phone]. , [place]. tel: tel: [phone] Lisa Olmedo Unspecified lump Apr-2 Miguelangel Referring In Womens in breast 1-201 Mar. Provider: Sana MOTA, 6 700 Sheridan Johnson [facility], 700 1522, [address], [facility] Dr RIBERA, 120, [place] 120, [id number], Honorio Olmedo, [place], tel: [phone]. , [place]. tel: tel: [phone] Lisa Olmedo Yogesh-2 Johnson Referring In Womens 7-201 Sheridan. Provider: Sana MOTA, 5 700 Sheridan Johnson [facility], 700 1522, [address], [facility] Dr RIBERA, 120, [place] 120, [id number], Honorio Olmedo, [place], tel: [phone]. , [place]. tel: tel: [phone] Lisa Olmedo Yogesh-0 Means In Womens 8-201 Mar. Health NAKUL, 3 700 [facility] [address], [address], [facility] [place], 120, [id number], [facility] [place], tel: [phone] , [place]. tel: [phone] Lisa Olmedo Yogesh-0 Johnson In Womens 6-201 Sheridan. Sana MOTA, 3 700 [facility] [address], [address], [facility] [place], 120, [id number], [facility] [place], tel: [phone] , [place]. tel: [phone] Family History Family Member Diagnosis Age At [...] older Payers Payer name Insurance type Covered libertarian ID Authorization(s) [facility] [place] BL [id number] [place] CI [id number] [place] [id number] [place] [id number] [place] [id number] [facility] BL [id number] Social History Type Description Quantity Date Captured Alcohol Use Details No Caffeine Use Details coffee 1 cup per day Tobacco Use Status Never smoked tobacco Smoking Status Never smoker Vital Signs Date / Height Weight BMI Pulse Blood Temperature Respiratory Body Head BMI Time: Rate Pressure Rate Surface Circumference percentile Area 191.20 31.8 124/ lbs 1 mm[Hg] 8:35 kg/m AM eter (2) Chief Complaint And Reason For Visit Unknown Chief Complaint And Reason For Visit Reason For Referral Reason For Referral Unknown Plan Of Care Date Type Action Status Appointment Sheridan Blount BOOKED Appointment Sheridan Blount [facility] R C/S BOOKED Future Order: Radiology Order Diagnostic Mammogram Right Breast Ordered ([id number]) Future Order: Radiology Order Breast Ultrasound Right Breast Ordered ([id number]) Future Order: Radiology Order Ultrasound OB Follow-up ([id number]) Ordered Date Type Problem Goal Intervention Status [...]
--- OUTSIDE RECORDS SUMMARY | 2017-06-09 05:44 | External Medical Summary | Continuity of Care Document ---
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 [...] second trimester 18 weeks gestation of - OCP Surveillance - Active Procedures Procedure Date Immuniz admnin, 1 vac, sngl/combo 19 Yrs + Flu Vaccine - Quadrivalent OB Visit No Charge Antibody Screen, RBC Glucose test Hemoglobin count, colorimetric Hematocrit blood count Venpnctr fngr/heel/ear stick routne Results Test Name Date and Time Measure Units Reference Range Abnormal Flag Comments Panel Description: Glucose [Mass/volume] in Serum or Plasma --1 hour post 50 g glucose PO GLUCOSE, 114 mg/dL <140 N Test performed at [facility] SCREEN 09:55:00 DIAGNOSTICS [id number] (50G)-[address] [place] [address]Aumsupqk: GAYATRI ENNIS DO,MPH Panel Description: HEMOGLOBIN + HEMATOCRIT HEMOGLOBIN 09:55:00 11.0 g/dL 11.7-15.5 L HEMATOCRIT 09:55:00 32.5 % 35.0-45.0 L Test performed at [facility] [id number] [place] [address]Zwfkjrqy: GAYATRI ENNIS DO,MPH Panel Description: ANTIBODY SCREEN, RBC W/REFL ID, TITER AND AG ANTIBODY NO ANTIBODIES N Reference SCREEN, RBC 09:55:00 DETECTED range No W/REFL ID, antibodies detected This TITER AND AG assay is a screening test for the detection of red blood cell antibodies. The test is not to be used for pretransfusion screening or for the medical management of an alloimmunized . REPORT COMMENT:FASTING:NOTest performed at [facility] [id number] [place] [address]Zaijbukq: GAYATRI ENNIS DO,MPH Advance Directives Directive Yes / No Effective Date File Name Unknown Encounters Encounter Practice Location Reason(s) Diagnoses Date Provider Care Team Description For Visit Members Lisa Olmedo Encounter for Oct-2 Johnson Referring In Womens suprvsn of normal 3-201 Sheridan. Provider: Sana MOTA, , third 7 700 Sheridan Johnson PO Box [id number] weeks [facility], 700 1522, gestation of [facility], , [facility] Dr RIBERA, 120, [place] 120, , Honorio Olmedo, [place], [place], tel: [phone]. , [place]. tel: tel: [phone] Lisa Olmedo Previous Low Oct-0 Johnson Referring In Womens Transverse 6-201 Sheridan. Provider: Sana MOTA, C-SectionEncounter 7 700 Sheridan Johnson PO Box for suprvsn of [facility], 700 1522, normal , [facility], second [email or web address] Dr, [facility] Dr RIBERA, weeks gestation of 120, [place] 120, [id number], Honorio Olmedo, [place], [place], tel: [phone]. , [place]. tel: tel: [phone] Lisa Olmedo Supervision of Sep-0 Johnson Referring In Womens other high risk 5-201 Shreidan. Provider: Sana MOTA, pregnancies, second 7 700 Sheridan Johnson PO Box [email or web address] weeks [facility], 700 1522, gestation of [facility], , [facility] Dr RIBERA, 120, [place] 120, [id number], Honorio Olmedo, [place], [place], tel: [phone]. , [place]. tel: tel: [phone] Lisa Olmedo Supervision of Aug-0 Johnson Referring In Womens other high risk 8-201 Sheridan. Provider: Sana MOTA, pregnancies, second 7 700 Sheridan Johnson PO Box weeks [facility], 700 1522, gestation of [facility], , [facility] Dr RIBERA, 120, [place] 120, , Honorio Olmedo, [place], tel: [phone]. , [place]. tel: tel: [phone] Lisa Olmedo Supervision of Johnson Referring In Womens other high risk 0-201 Sheridan. Provider: Health [place], pregnancies, first 7 700 Sheridan Johnson PO Box [id number] weeks Medical , 700 1522, gestation of [facility], , [facility] Dr RIBERA, 120, [place] 120, , Honorio Olmedo, [place], [place], tel:[phone]. , [place]. tel: tel: [phone] Lisa Olmedo Supervision of Johnson Referring In Womens other high risk 5-201 Sheridan. Provider: Health [place], pregnancies, first 7 700 Sheridan Johnson PO Box trimesterEncntr [facility], 700 1522, [facility], infections w sexl , [facility] Dr RIBERA, mode of 120, [place] 120, , transmissEncounter Honorio [place], for screening for [place], [place], tel: ot infec/parastc [phone]. [facility] , . tel: for suprvsn of tel: [phone] normal , [id number] first trimesterEncounter for screening of [id number] weeks gestation of Associates Honorio Irregular Butler Referring In Womens MensesEncounter for 9-201 Renée. Provider: Health NAKUL, test, 7 700 Sheridan Johnson PO Box result positive [facility], 700 1522, [address], [facility] Dr RBIERA, 120, [place] 120, [id number], Honorio Olmedo, [place]OU[place]KA RIBERA, tel: [phone]. , [place]. tel: tel: [phone] Lisa Olmedo Acute upper Soham Referring In Womens respiratory - Izzy. Provider: Sana MOTA, infection, 7 700 Sheridan Johnson PO Box unspecifiedAcute Medical K, 700 1522, bronchitis, [place], nisaified Dr, [facility] Dr RIBERA, 120, [place] 120, [id number], Honorio Olmedo, [place], [place], tel: [phone]. , [place]. 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 Provider: Sana MOTA, w/o abn findings 7 700 Sheridan Mckeonb PO Box Medical K, 700 15[address], [address], [facility] Dr RIBERA, 120, [place] 120, [id number], Honorio Olmedo, [facility], [place], tel: [phone]. , [place]. tel: tel: [phone] Lisa Olmedo Unspecified lump in Means Referring In Womens breast - Mar. Provider: Sana MOTA, 6 700 Sheridan Mckeonb PO Box Medical K, 700 1522, [address], [facility] Dr RIBERA, 120, [place] 120, [id number], Honorio Olemdo, [place], [place], tel: [phone]. , [place]. tel: tel: [phone] Lisa Olmedo Johnson Referring In Womens Sheridan. Provider: Sana MOTA, 5 700 Sheridan Johnson PO Box Medical K, 700 1522, [address], [facility] Dr RIBERA, 120, [place] 120, [id number], Honorio Olmedo, [place], [place], tel: [phone]. , [place]. tel: tel: [phone] Lisa Olmedo 0 Means In Womens - Mar. Health NAKUL, 3 700 PO Box Medical 1522, [address] Kristian, [place], 120, [id number], [facility] [place], tel:[phone] , [place]. tel: [phone] Lisa Olmedo Johnson In Womens 6-201 Sheridan. [facility], 3 700 PO [facility] 15[address], [address] [place], [place], 120, [id number], [facility] [place], tel:[phone] , [place]. tel: [phone] Family History Family Member Diagnosis Age At Onset No family history of Thrombosis Mother Gestational Diabetes Maternal Grandfather Diabetes mellitus Son Cardiovascular Disease Mother Gynecological Problem Immunizations Vaccine Date Status Comments Rhophylac completed Source: New Immunization Record Influenza, injectable, completed Source: New Immunization Record quadrivalent, preservative free, 3 yrs or older Influenza, injectable, completed Source: New Immunization Record quadrivalent, preservative free, 3 yrs or older Payers Payer name Insurance type Covered green party ID Authorization(s) [facility] BL [id number] [facility] [id number] [facility] [place] [id number] [facility] BL [id number] [facility] BL [id number] Social History Type Description Quantity Date Captured Alcohol Use Details No Caffeine Use Details Unknown Tobacco Use Status Unknown Smoking Status Never smoker Vital Signs Date / Height Weight BMI Pulse Blood Temperature Respiratory Body Head BMI Time: Rate Pressure Rate Surface Circumference percentile Area 179.80 35.6 / lbs 5 mm[Hg] 9:03 kg/m AM eter (2) Chief Complaint And Reason For Visit Unknown Chief Complaint And Reason For Visit Reason For Referral Reason For Referral Unknown Plan Of Care Date Type Action Status Appointment Sheridan Blount BOOKED Appointment Sheridan Blount [facility] R C/S BOOKED Future Order: Radiology Order Diagnostic Mammogram Right Breast Ordered ([id number]) Future Order: Radiology Order Breast Ultrasound Right Breast Ordered ([id number]) Date Type Problem Goal Intervention Status Start [...]
--- OUTSIDE RECORDS SUMMARY | 2017-06-09 05:44 | External Medical Summary | Continuity of Care Document ---
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 for evs manager exam (general) - (routine) w/o abn findings Supervision of other high risk - pregnancies, second trimester 18 weeks gestation of - Acute upper respiratory infection, unspecified Acute bronchitis, unspecified Unspecified lump in breast Irregular Menses Encounter for test, result positive Supervision of other high risk - pregnancies, first trimester 13 weeks gestation of - Encounter for suprvsn of normal - , first trimester Encounter for screening of - mother 10 weeks gestation of - Supervision of other high risk - pregnancies, first trimester Encntr screen for infections w sexl - mode of transmiss Encounter for screening for oth - infec/parastc diseases OCP Surveillance - Active Procedures Procedure Date [...] second 7 700 Sheridan Johnson [id number] [facility], 700 1522, gestation of [facility], , [facility] [address] RIBERA, 120, Me[place] 120, , Honorio Olmedo, [place], [place], tel:[phone]. , [place]. tel: tel: [phone] Lisa Olmedo Supervision of Johnson Referring In Womens other high risk 0-201 Sheridan. Provider: Sana MOTA, pregnancies, first 7 700 Sheridan Johnson [id number] [facility], 700 1522, gestation of [facility], , [facility] Dr RIBERA, 120, Meño 120, , Honorio Olmedo, [place], [place], tel: [phone]. , [place]. tel: tel: [phone] Lisa Olmedo Encounter for Johnson Referring In Womens suprvsn of normal 5-201 Sheridan. Provider: Sana MOTA, , first 7 700 Sheridan Johnson [address] [facility], 700 1522, for [facility] Kristian, screening of , [facility] Dr RIBERA, [id number] weeks 120, Meño 120, , gestation of Honorio Olmedo, pregnancySupervisio [place], [place], tel: n of other high [phone]. risk pregnancies, , [place]. tel: first tel: [phone] trimesterEncntr [id number] screen for infections w sexl mode of transmissEncounter for screening for oth infec/parastc diseases Lisa Olmedo Irregular Butler Referring In Womens MensesEncounter for 9-201 Renée. Provider: Sana MOTA, test, 7 700 Sheridan Johnson [address] result positive Medical K, 700 1522, [address], [facility] Dr RIBERA, 120, Meño 120, [id number], Honorio [place]medo, [place], [place], tel: [phone]. , [place]. tel: tel: [phone] Lisa Olmedo Acute upper October- Soham Referring In Women respiratory Izzy. Provider: Sana MOTA, infection, 7 700 Sheridan Johnson [address] unspecifiedAcute Medical K, 700 1522, bronchitis, [place] Lilian [address], nisaified , [facility] [address] RIBERA, 120, Me[place] 120, [id number], Honorio Olmedo, [place], [place], tel: [phone]. , [place]. tel: tel: [phone] Lisa Olmedo Encntr for evs manager exam Johnson Referring In Womens (general) (routine) Sheridan. Provider: Sana MOTA, w/o abn findings 7 700 Sheridan Johnson [address] Medical K, 700 1522, [place] [address], [facility] Dr RIBERA, 120, Meño 120, [id number], Honorio Olmedo, [place], [place], tel: [phone]. , [place]. tel: tel: [phone] Lisa Olmedo Unspecified lump in Means Referring In Womens breast Mar. Provider: Sana MOTA, 6 700 Sheridan Johnson [address] Medical K, 700 1522, [place] [address], [facility] Dr RIBERA, 120, Me[place] 120, [id number], Honorio Olmedo, [place], [place], tel: [phone]. , [place]. tel: tel: [phone] Lisa Olmedo Johnson Referring In Womens Sheridan. Provider: Sana MOTA, 5 700 Sheridan Johnson [address] Medical K, 700 1522, [address], [place], 120, Me[place] 120, [id number], Olmedo, [place], [place], [place], tel: [phone]. , [place]. tel: tel: [phone] [facility] Means In Womens 8-201 Mar. [facility], 3 700 [facility] [address], [address] Kristian, [facility] [place], 120, [id number], [facility] [place], tel: [phone] , [place]. tel: [phone] [facility]0 Johnson In Womens 6-201 Sheridan. [facility], 3 700 [facility] [address], [address] Kristian, [facility] [place], 120, [id number], [facility] [place], tel: [phone] , [place]. tel: [phone] Family History Family Member Diagnosis Age At Onset No family history of Thrombosis Mother Gestational Diabetes Maternal Grandfather Diabetes mellitus Son Cardiovascular Disease Mother Gynecological Problem Immunizations Vaccine Date Status Comments Influenza, injectable, completed Source: New Immunization Record quadrivalent, preservative free, 3 yrs or older Payers Payer name Insurance type Covered alliance party ID Authorization(s) [facility] [id number] Everence [id number] [facility] [id number] Social History Type Description Quantity Date Captured Alcohol Use Details No Caffeine Use Details Unknown Tobacco Use Status Unknown Smoking Status Never smoker Vital Signs Date / Height Weight BMI Pulse Blood Temperature Respiratory Body Head BMI Time: Rate Pressure Rate Surface Circumference percentile Area 165.10 35.6 / lbs 5 mm[Hg] 4:22 kg/m PM eter (2) Chief Complaint And Reason For Visit Unknown Chief Complaint And Reason For Visit Reason For Referral Reason For Referral Unknown Plan Of Care Date Type Action Status Appointment Sheridan Blount BOOKED Future Order: Radiology Order Diagnostic Mammogram Right Breast Ordered ([id number]) Future Order: Radiology Order Breast Ultrasound Right Breast Ordered ([id number]) Date Type Problem Goal Intervention Status Start [...]
[2017-06-09] MEDS ORDERED: CITRIC ACID/SODIUM CITRATE 30ml PO ONE (05:53)
[2017-06-09] MEDS ORDERED: FAMOTIDINE PB 20 MG/50 ML BAG IV ONE (05:53)
[2017-06-09] MEDS ORDERED: LR 1,000 ML IV SCH (06:00)
[2017-06-09] MEDS ORDERED: SIMETHICONE 80 MG CHEWABLE TABLET PO PRN (06:33)
[2017-06-09] MEDS ORDERED: DiphenhydrAMINE 25 MG CAPSULE PO PRN (06:33)
[2017-06-09] MEDS ORDERED: ACETAMINOPHEN 500 MG TABLET PO PRN (06:33)
[2017-06-09] MEDS ORDERED: SALINE FLUSH 10ml SYRINGE IV PRN (06:33)
[2017-06-09] MEDS ORDERED: CALCIUM CARBONATE Chewable 500mg TABLET PO PRN (06:33)
[2017-06-09] MEDS ORDERED: HYDROCORTISONE 2.5% CREAM 30gm RECTALLY PRN (06:33)
[2017-06-09] MEDS ORDERED: CEFAZOLIN PREMIX (MC ONLY) 2 GM/50 ML BAG IV ONE (06:35)
[2017-06-09] MEDS ORDERED: OXYTOCIN DRIP 30 UNIT/500 ML ML IV SCH (06:45)
[2017-06-09 06:59] VITALS: BMI 33.3
[2017-06-09] MEDS ORDERED: MORPHINE SULFATE PF 5mg/10ml INJ (Duramorph) ONE ×2 (07:02→07:52)
[2017-06-09] MEDS ORDERED: FentaNYL 100 MCG/2 ML INJECTION ONE ×2 (07:03→07:52)
[2017-06-09] MEDS ORDERED: OXYTOCIN BOLUS BAG 30 UNIT/500 ML ML IV SCH (07:45)
[2017-06-09] MEDS ORDERED: ONDANSETRON 4 MG/2 ML INJECTION ONE ×2 (07:52)
[2017-06-09] MEDS ORDERED: EPHEDRINE 50mg/ml INJECTION ONE (07:52)
--- NOTE | 2017-06-09 08:21 | Operative Note ---
Operative Note - Date of Operation Date of Operation: 06/09/17 - General : 3 Para: 1 Estimated or Known Gestational Age (weeks): 39 Estimated or Known Gestational Age (days): 0 - Preoperative Diagnosis Previous Section - Postoperative Diagnosis previous section - Procedure Repeat, Low-transverse - Surgeon Surgeon: Sheridan Johnson MD - Groutman OB Groutman: Dylan Bales MD - Anesthesia Anesthesia Provider: John Barron CRNA Anesthesia Type: Spinal - Complications Complications: None - Estimated Blood Loss Estimated Blood Loss:: 800 - Findings Findings: viable male, clear fluids, normal uterus, normal adenexa, cephalic - APGARS : 8,9 - Weight Weight (grams): 3960 - Description of Procedure Description of Procedure: The patient was taken to the operating room where anesthesia was obtained. She was placed in the dorsal supine position with a leftward tilt. A Dejesus catheter was placed . She was prepared and draped in the normal sterile fashion. A Pfannenstiel incision was made through her previous incision and carried down to the fascia. The fascia was incised in the midline with the scalpel and then extended laterally with the Currie scissors. The fascia was elevated, and the underlying rectus muscles were dissected off. The peritoneum was entered during the dissection of the rectus muscles. This was extended superiorly and inferiorly with good visualization of the bladder. The bladder blade was inserted. A bladder flap was created sharply. The lower uterine segment was incised in a transverse fashion [id number] with the scalpel and bluntly extended. The membranes were ruptured. The s head was delivered atraumatically. The nose and mouth were suctioned. The cord was clamped and cut. The was handed to the waiting resuscitation team. The placenta delivered spontaneously. The uterus was exteriorized and cleared of all clots and debris. The uterus was closed with running, locked 0- monocryl. The middle third of the incision was imbricated for hemostasis. Hemostasis was obtained on the serosal edges with cautery. The uterus was returned to the abdomen. The gutters were cleared of all clots and debris. The uterine incision was inspected one final time and still noted to be hemostatic. The peritoneum was closed with running 2-0 vicryl. Hemostasis was obtained in the rectus muscles with the cautery. The fascia was closed with running 0-vicryl. Hemostasis was obtained in the subcutaneous tissue with the cautery. The skin was closed with 4-0 vicryl in a subcuticular manner. Steri- strips were placed. Sponge, sharp, and instrument counts were correct. The patient tolerated the procedure well and was taken to the recovery room in good condition.
[2017-06-09] MEDS ORDERED: NALOXONE 2 MG/2 ML INJECTION PFS IVP PRN (08:58)
--- NOTE | 2017-06-09 08:58 | Anesthesia Preoperative Report ---
Anesthesia Epidural/Spinal Rec - Date and Time Date: 06/09/17 Preoperative Diagnosis: repeat Procedure: Plan: Spinal - Vital Signs Vital Signs: Temperature 97.6 F 06/09/17 06:43 Pulse Rate 90 06/09/17 05:53 Respiratory Rate 18 06/09/17 05:53 Blood Pressure 140/89 H 06/09/17 05:53 Pulse Oximetry 100 06/09/17 05:53 NPO since: >8hrs /Para: P:1 - Medictaions & Allergies Inpatient Medications: Current Medications Acetaminophen (Tylenol) 500 - 1,000 mg PO Q4H PRN PRN Reason: Pain Hydrocodone Bitart/Acetaminophen (Malcolm 5/325) 1 - 2 tab PO Q4H PRN PRN Reason: Pain Calcium Carbonate (Tums) 500 mg PO O PRN Diphenhydramine HCl (Benadryl) 25 - 50 mg PO Q6H PRN PRN Reason: Itching Docusate Calcium (Surfak) 240 mg PO DAILY [facility] Hydrocortisone (Anusol-Hc 2.5% Cream) 1 applic RECTALLY PRN PRN PRN Reason: Hemorrhoids Lactated Ringer's (Lactated Ringers) 1,000 mls @ 999 mls/hr IV .Q1H1M [facility] Last Admin: 06/09/17 06:30 Dose: 999 mls/hr Dextrose/Lactated Ringer's (Dextrose 5%-Lactated Ringers) 1,000 mls @ 100 mls/ hr IV .Q10H [facility] Oxytocin (Pitocin Drip) 30 unit in 500 mls @ 50 mls/hr IV .Q10H [facility] Stop: 06/09/17 16:44 Ibuprofen (Motrin) 800 mg PO Q8H PRN PRN Reason: Pain Isopropyl Alcohol (Nozin Nasal Swab) 1 each ELY 0600,1400,2200 AIMEE Magnesium Hydroxide (Mom) 30 ml PO HS PRN PRN Reason: Constipation Simethicone (Mylicon) 80 mg PO PCHS PRN PRN Reason: Gas Simethicone (Mylicon) 80 mg PO PCHS [facility] Sodium Chloride (Iv Flush) 10 - 80 ml IV PRN PRN PRN Reason: Flushing Allergies/Adverse Reactions: Allergies Allergy/AdvReac Type Severity Reaction Status Date / Time No Known Allergies Allergy Unverified 06/12/12 12:53 - Home Medications Home Medications: Home Medications Medication Instructions Recorded Confirmed Type Acetaminophen 1 tab PO Q4HR PRN #0 06/12/12 06/05/17 History - Medical History Respiratory: Reports: Bronchitis (yearly), Pneumonia Cardiovascular: DENIES: Hypertension Gastrointestional: Reports: Ulcer DENIES: Gastroesophageal Reflux Disease Other History: Reports: Now DENIES: Anesthesia Reactions - Surgical History Reproductive Surgery/Treatment: Reports: Section Anesthesia Reactions: None Hx Family Anesthesia Reaction: No History of Motion Sickness: No - Social History Smoking Status: Never smoker Substance Use Type: does not use Alcohol Intake Frequency: does not drink Hx Chewing Tobacco Use: No - Pertinent Findings Lab Data: CBC and BMP 06/09/17 06:17 EKG Rhythm: Normal Sinus Rhythm - Physical Exam Respiratory Exam: lungs clear, bilateral breath sounds equal Cardiovascular Exam: regular rate and rhythm - Airway Assessment Mallampati Score: II TMD: 3 Fingerbreadths Neck Extension: good Overall Assessment: may be difficult intubation - ASA ASA Score: 2 - Discussion Discussion: Discussed risks/options/alternatives of anesthesia and questions answered. Patient consents. Nursing pain assessment noted. Anesthesia Discussion: spouse Attestation Statement: Prior to the delivery of any anesthetic medication, I examined the patient, developed the plan, obtained the patient's consent and discussed the risk and benefits of the procedure with the patient/guardian.
[2017-06-09] MEDS: D5LR 1,000 ML IV SCH ×2 (09:19→19:25)
[2017-06-09] MEDS: IBUPROFEN 800 MG TABLET PO PRN ×2 (09:20→18:09)
[2017-06-09] MEDS: HYDROCODONE/APAP 5mg/325mg TABLET PO PRN ×2 (09:38→14:07)
--- NOTE | 2017-06-09 17:37 | OB/GYN Progress Note ---
OB-PP Progress Note - General PPD0 - Subjective Date: 06/09/17 Lochia: Minimal Pain: other (She did better with Percocet with her first baby and wonders if we can switch her to that.) Voiding: terrazas still in place - Objective Vital Signs: Last Vital Signs Temp 97.6 F 06/09/17 06:43 Pulse 90 06/09/17 05:53 Resp 18 06/09/17 05:53 BP 140/89 H 06/09/17 05:53 Pulse Ox 100 06/09/17 05:53 Urine Output: good General: alert and oriented Laboratory: Laboratory Results - last 24 hr 06/09/17 06/09/17 06/09/17 06:17 06:17 06:17 WBC 10.9 RBC 4.25 Hgb 12.6 Hct 37.3 MCV 87.8 MCH 29.6 MCHC 33.8 RDW Std Deviation 39.8 Plt Count 204 MPV 11.1 Immature Gran % (Auto) 0.5 Neut % (Auto) 75.0 H Lymph % (Auto) 15.4 L [place] % (Auto) 7.9 Eos % (Auto) 1.1 Baso % (Auto) 0.1 Neut # (Auto) 8.2 H Lymph # (Auto) 1.7 [place] # (Auto) 0.9 H Eos # (Auto) 0.1 Baso # (Auto) 0.0 Abs Immat Gran (auto) 0.05 H Blood Type A Negative Antibody Screen Positive A* Antibody Identification Immune D RhIG Candidate? Not a candidate - Assessment Assessment: Repeat C/S - Plan Plan: routine care (Switch Sugar Tree to Percocet.)
[2017-06-09] MEDS: Oxycodone/Acetaminophen 5/325 1 TAB PO PRN ×3 (18:08→22:16)
[2017-06-09 18:17] VITALS: RESP 16
[2017-06-09] MEDS: SIMETHICONE 80 MG CHEWABLE TABLET PO SCH ×2 (18:58→21:55)
[2017-06-09] MEDS: DOCUSATE CALCIUM 240 MG CAPSULE PO SCH (19:27)
[2017-06-09] MEDS: NOZIN NASAL SWAB NAS SCH (21:55)
[2017-06-10] MEDS: SIMETHICONE 80 MG CHEWABLE TABLET PO SCH ×6 (00:44→22:36)
[2017-06-10] MEDS: IBUPROFEN 800 MG TABLET PO PRN ×3 (02:04→15:52)
[2017-06-10] MEDS: Oxycodone/Acetaminophen 5/325 1 TAB PO PRN ×6 (04:13→22:36)
[2017-06-10] MEDS: NOZIN NASAL SWAB NAS SCH ×2 (05:47→08:10)
[2017-06-10] MEDS: DOCUSATE CALCIUM 240 MG CAPSULE PO SCH (08:10)
--- NOTE | 2017-06-10 08:50 | OB/GYN Progress Note ---
OB-PP Progress Note - General PPD1 Maternal Group B Strep: Positive Maternal blood type: A- Maternal Rubella Status: Immune General: Baby- Rh negative - Subjective Date: 06/10/17 Lochia: Minimal Pain: controlled Voiding: Dejesus just removed. - Objective Vital Signs: Last Vital Signs Temp 98.1 F 06/10/17 06:07 Pulse 74 06/10/17 06:07 Resp 16 06/10/17 06:07 BP 113/65 06/10/17 06:07 Pulse Ox 99 06/10/17 06:07 Urine Output: good General: alert and oriented Abdomen: fundus firm, non-tender, soft, non-distended Incision: clean, no erythema, dry, intact Extremities: non-tender Laboratory: Laboratory Results - last 24 hr 06/09/17 06/09/17 06/09/17 06:17 06:17 17:50 WBC 12.8 H RBC 3.77 L Hgb 11.1 L D Hct 33.3 L MCV 88.3 MCH 29.4 MCHC 33.3 RDW Std Deviation 40.4 Plt Count 180 MPV 10.5 Antibody Identification Immune D RhIG Candidate? Not a candidate - Assessment Assessment: Repeat C/S - Plan Plan: routine care
--- NOTE | 2017-06-10 11:15 | Anesthesia Postoperative Note ---
- Date and Time Date: 06/10/17 Time: 11:14 - Status Patient Participated in Evaluation: Patient Participated in Person Vital Signs: Temperature 98.1 F 06/10/17 06:07 Pulse Rate 74 06/10/17 06:07 Respiratory Rate 16 06/10/17 06:07 Blood Pressure 113/65 06/10/17 06:07 Pulse Oximetry 99 06/10/17 06:07 Respiratory Function: Airway Patent Cardiovascular Function: Regular Pulse Mental Status: Alert and Oriented Pain Intensity: 2 Hydration: Taking PO Fluids Complications During Recover: None Apparent Post Anesthesia Care Notes: full motor and sensation has returned. nausea post duramorph, none currently. pruritis also an issue after duramorph - Follow-Up Instructions Instructions: Per Surgeon
[2017-06-11] MEDS: IBUPROFEN 800 MG TABLET PO PRN ×2 (00:36→09:09)
[2017-06-11] MEDS: Oxycodone/Acetaminophen 5/325 1 TAB PO PRN ×3 (05:18→14:52)
--- NOTE | 2017-06-11 07:52 | OB/GYN Progress Note ---
OB-PP Progress Note - General PPD2 Maternal Group B Strep: Positive Maternal blood type: A- Maternal Rubella Status: Immune - Subjective Date: 06/11/17 Lochia: Minimal Pain: controlled Voiding: voiding Subjective Comments: Doing well. They aren't sure if they want to go home today or tomorrow. - Objective Vital Signs: Last Vital Signs Temp 97.9 F 06/11/17 05:00 Pulse 72 06/11/17 05:00 Resp 16 06/11/17 05:00 BP 129/74 06/11/17 05:00 Pulse Ox 99 06/11/17 00:45 General: alert and oriented Abdomen: fundus firm, non-tender, soft, non-distended Incision: clean, no erythema, dry, intact Extremities: non-tender - Assessment Assessment: Repeat C/S - Plan Plan: routine care, continue PNV
[2017-06-11] MEDS: DOCUSATE CALCIUM 240 MG CAPSULE PO SCH (09:09)
[2017-06-11] MEDS: NOZIN NASAL SWAB NAS SCH (10:37)
[2017-06-11] MEDS: SIMETHICONE 80 MG CHEWABLE TABLET PO SCH (10:38)
[2017-06-11 16:00] VITALS: BP 138/67; PULSE 80; TEMP 98.2; O2SAT 97
== END 2017-06-11 15:49 | disposition home or self-care (01) | DRG 766 ==
LOC: MC 05:32
PROVIDERS: ADMIT Obstetrics & Gynecology; ATTEND Obstetrics & Gynecology